=== PATIENT | female | born 1950 | race Hispanic/Latino ===

== ENCOUNTER 2017-12-06 07:34 | Outpatient (CLI) | payer MEDICARE | END 2017-12-06 07:35 | disposition home or self-care (01) | LOC: VAS 07:34 | PROVIDERS: ATTEND Internal Medicine | DX: M79.604 Pain in right leg (principal) ==

== ENCOUNTER 2018-03-30 12:39 | Inpatient (IN) | payer MEDICARE ==
--- NOTE | 2018-03-30 13:01 | Emergency Department Report ---
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 Patient says that she is also swollen to the legs and to the face. She has a history of COPD, CHF, pulmonary hypertension, chronic kidney disease. She is oxygen dependent at home at 2 L via nasal cannula. She went to see the tank worker today, Dr. Ta, who did a chest x-ray and concern for some volume overload. The patient sees Dr. Lagunas for primary care and Dr. Aceves for cardiology. No recent travel or sick contacts at home. ED Past Medical Hx - Past Medical History Previous Medical History?: Yes Hx Congestive Heart Failure: Yes Hx Renal Disease: Yes Hx COPD: Yes Additional medical history: Pulmonary Htn - Social History Smoking Status: Former Smoker Substance Use Type: None - Medications Home Medications: Home Medications Medication Instructions Recorded Confirmed Last Taken Type ALBUTEROL NEB's [Proventil] 2.5 mg IH TID PRN 03/30/18 03/30/18 03/30/18 History ALPRAZolam [Xanax TAB] 0.5 mg PO TID 03/30/18 03/30/18 Unknown History Albuterol Sulfate [Ventolin HFA] 2 puff IH Q4H PRN 03/30/18 03/30/18 Unknown History Ambrisentan [Letairis] 10 mg PO QDAY 03/30/18 03/30/18 03/30/18 History Fluticasone/Salmeterol [Advair 1 each IH BID 03/30/18 03/30/18 Unknown History 500-50 Diskus] Furosemide [Lasix TAB] 40 mg PO QDAY 03/30/18 03/30/18 03/30/18 History Omeprazole 20 mg PO QDAY 03/30/18 03/30/18 03/30/18 History Potassium Chloride [Klor-Con M20] 20 meq PO QDAY 03/30/18 03/30/18 03/30/18 History Tadalafil [Cialis] 20 mg PO BID 03/30/18 03/30/18 03/30/18 History ED Review of Systems ROS: Stated complaint: SOB/COPD Other details as noted in HPI Comment: All other systems reviewed and negative Constitutional: denies: chills, fever Eyes: denies: eye pain, vision change ENT: denies: ear pain, throat pain Respiratory: cough, shortness of breath, wheezing Cardiovascular: edema. denies: chest pain Gastrointestinal: denies: abdominal pain, vomiting Genitourinary: denies: dysuria, discharge Musculoskeletal: denies: back pain, arthralgia Skin: denies: rash, lesions Neurological: denies: headache, weakness Physical Exam - Physical Exam Vital Signs: Vital Signs 03/30/18 12:44 Temperature 97.6 F Pulse Rate 96 H Respiratory 24 Rate Blood Pressure 137/74 O2 Sat by Pulse 85 Oximetry Physical Exam: GENERAL: The patient is well-developed well-nourished. HEENT: Normocephalic. Atraumatic. Patient has moist mucous membranes. EYES: Extraocular motions are intact. Pupils are equal and reactive to light bilaterally. NECK: Supple. Trachea is midline. CHEST/LUNGS: Coarse breath sounds. Mild wheezing. There is tachypnea but no excessive muscle use. There is no respiratory distress noted. HEART/CARDIOVASCULAR: Regular. There is no tachycardia. There is no obvious murmur. ABDOMEN: Abdomen is soft, nontender. Patient has normal bowel sounds. There is no abdominal distention. SKIN: Mild lower extremity pitting edema. NEURO: The patient is awake, alert, and oriented. The patient is cooperative. The patient has no focal neurologic deficits. The patient has normal speech. MUSCULOSKELETAL: There is no tenderness or deformity. There is no limitation range of motion. There is no evidence of acute injury. ED Course Vital Signs 03/30/18 12:44 Temperature 97.6 F Pulse Rate 96 H Respiratory 24 Rate Blood Pressure 137/74 O2 Sat by Pulse 85 Oximetry - ABG Interpretation Ph: 7.432 PCO2: 30 PO2: 54 Bicarbonate: 20 Interpretation: respiratory alkalosis, other (hypoxemia) ED Medical Decision Making - Lab Data Result diagrams: 03/30/18 13:04 03/30/18 13:08 - EKG Data -: EKG Interpreted by Ga EKG shows normal: sinus rhythm (PVCs), axis, intervals, QRS complexes (right bundle branch block, left posterior fascicular block), ST-T waves Rate: normal - EKG Data When compared to previous EKG there are: previous EKG unavailable Interpretation: other (sinus rhythm, PVCs, right bundle branch block, left posterior fascicular block) - Radiology Data Radiology results: report reviewed, image reviewed interpreted by me: Chest x-ray shows some mild cardiomegaly. There is some pulmonary vascular congestion. No obvious pneumonia. VENTILATION/PERFUSION LUNG SCAN: 03/30/18 CLINICAL: Chest pain. TECHNIQUE: 15.0 mCi of xenon-133 was administered by aerosol and 5.0 mCi of technetium 99m MAA was administered intravenously. Comparison is made to a same day chest x-ray. FINDINGS: Inhalation of Xenon gas demonstrates a normal distribution of the activity throughout both lungs. The wash out phases show no retention of activity. After injection of Technetium 99m macroaggregated albumin gamma camera imaging of the lungs in multiple projections demonstrates normal pulmonary contours with a relatively homogeneous distribution of activity. No suspicious focal areas of perfusion deficiency are identified. IMPRESSION: Low probability for pulmonary embolus. Transcribed By: REF Dictated By: CARMEN PALOMO MD Electronically Authenticated By: CARMEN PALOMO MD Signed Date/Time: 03/30/18 1523 - Medical Decision Making Patient presents with a few days of progressively worsening shortness of breath and presents with hypoxia through triage. Patient appears to have a combination of COPD and CHF exacerbation. There is some mild pulmonary vascular congestion on chest x-ray patient has a BNP greater than 5000. She does have some bronchospasm and history of COPD. ABG shows some hypoxemia but no significant acid base disorder. Patient has elevated d-dimer level so a VQ scan was done but it resulted as low probability of a pulmonary embolus. Patient was given breathing treatments, Lasix, Solu-Medrol. My plan is for the patient to be admitted to the hospital for further evaluation and treatment and this will be presented to Dr. Oshea for admission. - Differential Diagnosis CHF, COPD, Asthma, PE Critical Care Time: No Critical care attestation.: If time is entered above; I have spent that time in minutes in the direct care of this critically ill patient, excluding procedure time. ED Disposition Clinical Impression: Hypoxemia, COPD exacerbation, Renal insufficiency CHF exacerbation Qualifiers: Heart failure type: unspecified Qualified Code(s): I50.9 - Heart failure, unspecified Dyspnea Qualifiers: Dyspnea type: shortness of breath Qualified Code(s): R06.02 - Shortness of breath; R06.00 - Dyspnea, unspecified; R06.01 - Orthopnea Disposition: OP ADMIT IP TO THIS HOSP Is pt being admited?: Yes Condition: Stable Instructions: Chronic Obstructive Pulmonary Disease (ED) Referrals: PRIMARY CARE, [Referring] - 3-5 Days Time of Disposition: 16:04
[2018-03-30 13:23] LABS: Hematocrit 35.9 % (30.3-42.9); Hemoglobin 11.7 gm/dl (10.1-14.3); Mean Corpuscular HGB Conc 33 % (30-34); Mean Corpuscular Volume 100 fl (79-97); Platelet Count 218 K/mm3 (140-440); Red Blood Count 3.59 M/mm3 (3.65-5.03)
[2018-03-30] MEDS ORDERED: PROVENTIL IH ONE (13:25)
[2018-03-30] MEDS ORDERED: ATROVENT IH ONE (13:25)
--- NOTE | 2018-03-30 13:28 | XRay Report ---
AP CHEST: HISTORY: Short of breath Moderate cardiomegaly and borderline pulmonary venous structures are identified. The lungs are grossly clear. No evidence for pneumonia, CHF or pneumothorax. IMPRESSION: Cardiomegaly.
[2018-03-30 13:42] LABS: Calcium 8.7 mg/dL (8.4-10.2)
[2018-03-30] MEDS ORDERED: LASIX IV ONE (13:57)
[2018-03-30 14:02] LABS: Basophils % (Manual) 0 % (0.0-1.8); Eosinophils % (Manual) 0 % (0.0-4.3); Total Cells Counted 100
[2018-03-30 14:03] LABS: Ovalocytes Few; Platelet Estimate Consistent w Auto; Poikilocytosis 1+
[2018-03-30] MEDS ORDERED: SOLU-Medrol IV ONE (15:24)
--- NOTE | 2018-03-30 15:29 | Nuclear Medicine Report ---
VENTILATION/PERFUSION LUNG SCAN: 03/30/18 CLINICAL: Chest pain. TECHNIQUE: 15.0 mCi of xenon-133 was administered by aerosol and 5.0 mCi of technetium 99m MAA was administered intravenously. Comparison is made to a same day chest x-ray. FINDINGS: Inhalation of Xenon gas demonstrates a normal distribution of the activity throughout both lungs. The wash out phases show no retention of activity. After injection of Technetium 99m macroaggregated albumin gamma camera imaging of the lungs in multiple projections demonstrates normal pulmonary contours with a relatively homogeneous distribution of activity. No suspicious focal areas of perfusion deficiency are identified. IMPRESSION: Low probability for pulmonary embolus.
[2018-03-30] MEDS ORDERED: MORPHINE IV ONE (18:33)
[2018-03-30] MEDS ORDERED: TYLENOL PO ONE (18:36)
[2018-03-30] MEDS ORDERED: TYLENOL ONE (18:40)
--- NOTE | 2018-03-30 22:42 | History and Physical Report ---
History of Present Illness Date of examination: 03/30/18 History of present illness: 68-year-old woman with a history of CHF, COPD, pulmonary hypertension comes emergency room complaints are shortness breath, dyspnea on exertion, PND and orthopnea. Over the last 2 months she has had increasingly shortness of breath, cough productive of yellow phlegm 2 months. Status post antibiotics and steroid treatment Review of systems Constitutional: no weight loss, chills, fever Ears, eyes, nose, mouth and throat: no nasal congestion, no nasal discharge, no sinus pressure, no vision change, no red eye. Neck: No neck pain or rigidity. Cardiovascular: no palpitations, chest pain Respiratory: no cough, shortness of breath Gastrointestinal: no hematochezia, abdominal pain Genitourinary : no frequency , no hematuria Musculoskeletal: no joint swelling or muscle ache Integumentary: no rash, no pruritis Neurological: no parathesias, no focal weakness Endocrine: no cold or heat intolerance, no polyuria or polydipsia Hematologic/Lymphatic: no easy bruising, no easy bleeding, no gland swelling Allergic/Immunologic: no urticaria, no angioedema. PAST MEDICAL HISTORY: CHF, COPD, pulmonary hypertension PAST SURGICAL HISTORY: Hysterectomy SOCIAL HISTORY: Denies alcohol, drugs, tobacco FAMILY HISTORY: Hypertension Medications and Allergies Allergies Allergy/AdvReac Type Severity Reaction Status Date / Time No Known Allergies Allergy Unverified 02/01/13 10:05 Home Medications Medication Instructions Recorded Confirmed Last Taken Type ALBUTEROL NEB's [Proventil] 2.5 mg IH TID PRN 03/30/18 03/30/18 03/30/18 History ALPRAZolam [Xanax TAB] 0.5 mg PO TID 03/30/18 03/30/18 Unknown History Albuterol Sulfate [Ventolin HFA] 2 puff IH Q4H PRN 03/30/18 03/30/18 Unknown History Ambrisentan [Letairis] 10 mg PO QDAY 03/30/18 03/30/18 03/30/18 History Fluticasone/Salmeterol [Advair 1 each IH BID 03/30/18 03/30/18 Unknown History 500-50 Diskus] Furosemide [Lasix TAB] 40 mg PO QDAY 03/30/18 03/30/18 03/30/18 History Omeprazole 20 mg PO QDAY 03/30/18 03/30/18 03/30/18 History Potassium Chloride [Klor-Con M20] 20 meq PO QDAY 03/30/18 03/30/18 03/30/18 History Tadalafil [Cialis] 20 mg PO BID 03/30/18 03/30/18 03/30/18 History Exam - Physical Exam Narrative exam: General Apperance: The patient lying in bed, breathing comfortable HEENT: Normocephalic, atraumatic. Pupils equally round and reactive to light, EOMI, no sclericterus or JVD or thyromegaly or nodule. , no carotid bruit, mucous membranes moist, no exudate or erythema Heart: S1-S2, regular is rhythm Lungs: Crackles bilaterally, breathing comfortable Abdomen: Positive bowel sounds, soft, nontender, nondistended, no organomegaly Extremities: no edema, no cyanosis clubbing Skin: no rash, nodule, warm and dry Neuro: cranial nerves 2-12 intact, speech is fluent, motor/sensory intact - Constitutional Vitals: Temp Pulse Resp BP Pulse Ox 97.6 F 96 H 21 122/53 91 03/30/18 12:44 03/30/18 16:30 03/30/18 16:30 03/30/18 16:30 03/30/18 16:00 Results - Labs CBC & Chem 7: 03/30/18 13:04 03/30/18 13:08 Labs: Abnormal lab results 03/30/18 03/30/18 03/30/18 Range/Units 13:04 13:08 13:08 RBC 3.59 L (3.65-5.03) M/mm3 MCV 100 H (79-97) fl MCH 33 H (28-32) pg Seg Neuts % (Manual) 92.0 H (40.0-70.0) % Lymphocytes % (Manual) 5.0 L (13.4-35.0) % Lymphocytes # (Manual) 0.4 L (1.2-5.4) K/mm3 D-Dimer 527.41 H (0-234) ng/mlDDU POC ABG pCO2 (35-45) POC ABG pO2 (80-105) Chloride 107.8 H (98-107) mmol/L Carbon Dioxide 20 L (22-30) mmol/L BUN 26 H (7-17) mg/dL Creatinine 1.4 H (0.7-1.2) mg/dL Glucose 170 H (65-100) mg/dL NT-Pro-B Natriuret Pep 5251 H (0-900) pg/mL 03/30/18 Range/Units 14:39 RBC (3.65-5.03) M/mm3 MCV (79-97) fl MCH (28-32) pg Seg Neuts % (Manual) (40.0-70.0) % Lymphocytes % (Manual) (13.4-35.0) % Lymphocytes # (Manual) (1.2-5.4) K/mm3 D-Dimer (0-234) ng/mlDDU POC ABG pCO2 30.9 L (35-45) POC ABG pO2 54 L (80-105) Chloride (98-107) mmol/L Carbon Dioxide (22-30) mmol/L BUN (7-17) mg/dL Creatinine (0.7-1.2) mg/dL Glucose (65-100) mg/dL NT-Pro-B Natriuret Pep (0-900) pg/mL - Imaging and Cardiology EKG: image reviewed Chest x-ray: report reviewed Assessment and Plan v/q low propability Assessment CHF exacerbation, acute, probably diastolic COPD exacerbation Plan Admit to medicine Start IV Lasix, consult cardiology Hold t beta tracey, RUSS inhibitor, blood pressure will not tolerate Start aspirin Monitor I's and O's, daily weights Cardiac enzymes, echo DVT prophylaxis Plan
[2018-03-30] MEDS ORDERED: TYLENOL PO PRN (23:50)
[2018-03-30] MEDS ORDERED: ZOFRAN IV PRN (23:50)
[2018-03-31] MEDS: SOLU-Medrol IV SCH ×3 (00:13→18:25)
[2018-03-31] MEDS: SODIUM CHLORIDE FLUSH SYRINGE 10 ML IV PRN ×2 (00:15→05:37)
[2018-03-31 01:23] LABS: Creatine Kinase MB 3.5 ng/mL (0.0-4.0)
[2018-03-31] MEDS: DUONEB *Not for PRN Use IH SCH ×3 (02:56→13:56)
[2018-03-31 03:56] LABS: Hematocrit 35.1 % (30.3-42.9); Hemoglobin 11.5 gm/dl (10.1-14.3); Mean Corpuscular HGB Conc 33 % (30-34); Mean Corpuscular Volume 100 fl (79-97); Platelet Count 213 K/mm3 (140-440); Red Blood Count 3.51 M/mm3 (3.65-5.03); Red Cell Distribution Width 14.6 % (13.2-15.2)
[2018-03-31 04:05] LABS: Calcium 8.7 mg/dL (8.4-10.2)
[2018-03-31] MEDS: LASIX IV SCH ×2 (05:35→18:05)
[2018-03-31 05:47] LABS: Basophils % (Manual) 0 % (0.0-1.8); Eosinophils % (Manual) 0 % (0.0-4.3); Monocytes % (Manual) 0 % (0.0-7.3); Total Cells Counted 100
[2018-03-31 05:48] LABS: Anisocytosis Few; Ovalocytes Few
[2018-03-31 05:48] LABS: Creatine Kinase MB 4.1 ng/mL (0.0-4.0)
[2018-03-31] MEDS: XANAX PO SCH ×3 (08:05→20:31)
[2018-03-31] MEDS: BROVANA NEBU IH SCH ×2 (08:54→20:25)
[2018-03-31] MEDS: PULMICORT IH SCH ×2 (08:54→20:25)
[2018-03-31] MEDS ORDERED: NON-FORMULARY (Fluticasone/Salmeterol [Advair 500-50 Diskus] 1 EACH) IH SCH (10:00)
[2018-03-31] MEDS ORDERED: NON-FORMULARY (Ambrisentan [Letairis] 10 MG) PO SCH (10:00)
--- NOTE | 2018-03-31 10:02 | Consultation ---
History of Present Illness Consult date: 03/31/18 Requesting physician: CYNTHIA MICHAEL Consult reason: congestive heart failure, shortness of breath History of present illness: This is a 68-year-old patient with severe pulmonary hypertension with cor pulmonology on 2 pulmonary hypertension medications who the last several weeks having worsening shortness of breath with exertion with cough no fever no chills no syncope no palpitations no chest pain was found with increased JVD and right-sided heart failure. Patient is on high-dose oxygenation O2 2 L Past History Past Medical History: hyperlipidemia, other (severe pulmonary hypertension idiopathic) Past Surgical History: denies: No surgical history Social history: denies: smoking (history of smoking) Family history: denies: no significant family history Medications and Allergies Allergies Allergy/AdvReac Type Severity Reaction Status Date / Time No Known Allergies Allergy Unverified 02/01/13 10:05 Home Medications Medication Instructions Recorded Confirmed Last Taken Type ALBUTEROL NEB's [Proventil] 2.5 mg IH TID PRN 03/30/18 03/30/18 03/30/18 History ALPRAZolam [Xanax TAB] 0.5 mg PO TID 03/30/18 03/30/18 Unknown History Albuterol Sulfate [Ventolin HFA] 2 puff IH Q4H PRN 03/30/18 03/30/18 Unknown History Ambrisentan [Letairis] 10 mg PO QDAY 03/30/18 03/30/18 03/30/18 History Fluticasone/Salmeterol [Advair 1 each IH BID 03/30/18 03/30/18 Unknown History 500-50 Diskus] Furosemide [Lasix TAB] 40 mg PO QDAY 03/30/18 03/30/18 03/30/18 History Omeprazole 20 mg PO QDAY 03/30/18 03/30/18 03/30/18 History Potassium Chloride [Klor-Con M20] 20 meq PO QDAY 03/30/18 03/30/18 03/30/18 History Tadalafil [Cialis] 20 mg PO BID 03/30/18 03/30/18 03/30/18 History Letairis 10 mg PO DAILY 03/31/18 03/31/18 03/30/18 History Active Meds: Active Medications Acetaminophen (Tylenol) 650 mg PO Q4H PRN PRN Reason: Pain MILD(1-3)/Fever >100.5/COOPER Albuterol/Ipratropium (Duoneb *Not For Prn Use*) 1 ampul IH Q6HRT [facility] Last Admin: 03/31/18 08:55 Dose: Not Given Documented by: Alprazolam (Xanax) 0.5 mg PO TID [facility] Last Admin: 03/31/18 08:05 Dose: 0.5 mg Documented by: Arformoterol Tartrate (Brovana Nebu) 15 mcg IH Q12HRT [facility] Last Admin: 03/31/18 08:54 Dose: 15 mcg Documented by: Aspirin (Baby Aspirin) 81 mg PO QDAY [facility] Budesonide (Pulmicort) 1 mg IH Q12HRT [facility] Last Admin: 03/31/18 08:54 Dose: 1 mg Documented by: Enoxaparin Sodium (Lovenox) 40 mg SUB-Q QDAY [facility] Furosemide (Lasix) 40 mg IV BID@0600,1800 [facility] Last Admin: 03/31/18 05:35 Dose: 40 mg Documented by: Methylprednisolone Sodium Succinate (Solu-Medrol) 60 mg IV Q8H [facility] Last Admin: 03/31/18 08:05 Dose: 60 mg Documented by: Miscellaneous Medication (Ambrisentan [Letairis]) 10 mg PO QDAY [facility] Ondansetron HCl (Zofran) 4 mg IV Q8H PRN PRN Reason: Nausea And Vomiting Pantoprazole Sodium (Protonix) 20 mg PO QDAY [facility] Pneumococcal Polyvalent Vaccine (Pneumovax 23) 0.5 ml IM .ONCE ONE Stop: 03/31/18 12:01 Sodium Chloride (Sodium Chloride Flush Syringe 10 Ml) 10 ml IV BID [facility] Sodium Chloride (Sodium Chloride Flush Syringe 10 Ml) 10 ml IV PRN PRN PRN Reason: LINE FLUSH Last Admin: 03/31/18 05:37 Dose: 10 ml Documented by: Review of Systems All systems: negative (as per the HPI) Physical Examination Vital Signs Temp Pulse Resp BP Pulse Ox 97.6 F 96 H 24 137/74 85 03/30/18 12:44 03/30/18 12:44 03/30/18 12:44 03/30/18 12:44 03/30/18 12:44 General appearance: no acute distress HEENT: Positive: EOMI Neck: Positive: JVD/HJR Cardiac: Positive: Reg Rate and Rhythm Lungs: Positive: clear to auscultation Neuro: Positive: Grossly Intact Abdomen: Positive: Soft Female genitourinary: deferred Skin: Positive: Clear Extremities: Present: normal. Absent: edema Results 03/31/18 03:46 03/31/18 03:46 Cardiac Enzymes 03/31/18 03/31/18 Range/Units 00:26 05:07 CK-MB (CK-2) 3.5 4.1 H (0.0-4.0) ng/mL CBC 03/30/18 03/31/18 Range/Units 13:04 03:46 WBC 7.0 4.5 (4.5-11.0) K/mm3 RBC 3.59 L 3.51 L (3.65-5.03) M/mm3 Hgb 11.7 11.5 (10.1-14.3) gm/dl Hct 35.9 35.1 (30.3-42.9) % Plt Count 218 213 (140-440) K/mm3 Comprehensive Metabolic Panel 03/30/18 03/31/18 Range/Units 13:08 03:46 Sodium 144 142 (137-145) mmol/L Potassium 3.6 3.7 (3.6-5.0) mmol/L Chloride 107.8 H 105.3 (98-107) mmol/L Carbon Dioxide 20 L 21 L (22-30) mmol/L BUN 26 H 25 H (7-17) mg/dL Creatinine 1.4 H 1.6 H (0.7-1.2) mg/dL Glucose 170 H 168 H (65-100) mg/dL Calcium 8.7 8.7 (8.4-10.2) mg/dL - Imaging and Cardiology Echo: report reviewed (09/2017 severe RV dilatation and moderate RV dysfunction severe pulmonary hypertension RVSP 100 mmHg normal LV function D shaped septum) Cardiac cath: report reviewed (2011 normal coronaries) EKG interpretations - Telemetry EKG Rhythm: Sinus Rhythm (normal sinus rhythm right axis deviation RVH) Assessment and Plan Acute respiratory failure Acute right sided heart failure Cor pulmonale Acute on chronic renal sufficiency Recommend cardiovascular point of view continue IV Lasix continue home pulmonary hypertension medications and monitor blood work for dehydration
[2018-03-31] MEDS: PROTONIX PO SCH (10:04)
[2018-03-31] MEDS: LOVENOX SUB-Q SCH (10:04)
[2018-03-31] MEDS: BABY ASPIRIN PO SCH (10:04)
[2018-03-31] MEDS: SODIUM CHLORIDE FLUSH SYRINGE 10 ML IV SCH ×2 (10:10→21:18)
--- NOTE | 2018-03-31 10:36 | Consultation ---
History of Present Illness Consult date: 03/31/18 Reason for consult: dyspnea, COPD, pulmonary hypertension History of present illness: Total CK [id number] female, admitted to the hospital with history of progressive shortness of breath for the past 2-3 days, the supper exertion, in the context of COPD and pulmonary hypertension. The patient complains of increased exertional dyspnea, pressure in her chest and shortness of breath. She reports occasional cough but no significant expectoration. She denies hemoptysis. Denies fever or chills or influenza-like illness contact. She is on treatment with cardiology for portal hypertension with Letaris and Trepostidil and follow-up with Dr. Ta at the office for COPD. No recent echocardiographic or RHC date on record for additional review. Uses oxygen 2 L/m at home. Denies snoring or history of sleep apnea. Reason ventilation/perfusion scan showed low probability scan. She also has a history of prior renal disease. Past History Past Medical History: hyperlipidemia, other (severe pulmonary hypertension idiopathic) Past Surgical History: denies: No surgical history Social history: denies: smoking (history of smoking) Family history: denies: no significant family history Medications and Allergies Allergies Allergy/AdvReac Type Severity Reaction Status Date / Time No Known Allergies Allergy Unverified 02/01/13 10:05 Home Medications Medication Instructions Recorded Confirmed Last Taken Type ALBUTEROL NEB's [Proventil] 2.5 mg IH TID PRN 03/30/18 03/30/18 03/30/18 History ALPRAZolam [Xanax TAB] 0.5 mg PO TID 03/30/18 03/30/18 Unknown History Albuterol Sulfate [Ventolin HFA] 2 puff IH Q4H PRN 03/30/18 03/30/18 Unknown History Ambrisentan [Letairis] 10 mg PO QDAY 03/30/18 03/30/18 03/30/18 History Fluticasone/Salmeterol [Advair 1 each IH BID 03/30/18 03/30/18 Unknown History 500-50 Diskus] Furosemide [Lasix TAB] 40 mg PO QDAY 03/30/18 03/30/18 03/30/18 History Omeprazole 20 mg PO QDAY 03/30/18 03/30/18 03/30/18 History Potassium Chloride [Klor-Con M20] 20 meq PO QDAY 03/30/18 03/30/18 03/30/18 History Tadalafil [Cialis] 20 mg PO BID 03/30/18 03/30/18 03/30/18 History Letairis 10 mg PO DAILY 03/31/18 03/31/18 03/30/18 History Active Meds: Active Medications Acetaminophen (Tylenol) 650 mg PO Q4H PRN PRN Reason: Pain MILD(1-3)/Fever >100.5/COOPER Albuterol/Ipratropium (Duoneb *Not For Prn Use*) 1 ampul IH Q6HRT [facility] Last Admin: 03/31/18 08:55 Dose: Not Given Documented by: Alprazolam (Xanax) 0.5 mg PO TID [facility] Last Admin: 03/31/18 08:05 Dose: 0.5 mg Documented by: Arformoterol Tartrate (Brovana Nebu) 15 mcg IH Q12HRT [facility] Last Admin: 03/31/18 08:54 Dose: 15 mcg Documented by: Aspirin (Baby Aspirin) 81 mg PO QDAY [facility] Last Admin: 03/31/18 10:04 Dose: 81 mg Documented by: Budesonide (Pulmicort) 1 mg IH Q12HRT [facility] Last Admin: 03/31/18 08:54 Dose: 1 mg Documented by: Enoxaparin Sodium (Lovenox) 40 mg SUB-Q QDAY [facility] Last Admin: 03/31/18 10:04 Dose: 40 mg Documented by: Furosemide (Lasix) 40 mg IV BID@0600,1800 [facility] Last Admin: 03/31/18 05:35 Dose: 40 mg Documented by: Methylprednisolone Sodium Succinate (Solu-Medrol) 60 mg IV Q8H [facility] Last Admin: 03/31/18 08:05 Dose: 60 mg Documented by: Miscellaneous Medication (Ambrisentan [Letairis]) 10 mg PO QDAY [facility] Miscellaneous Medication (Letairis) 10 mg PO DAILY [facility] Miscellaneous Medication (Tadalafil [Cialis]) 20 mg PO BID [facility] Ondansetron HCl (Zofran) 4 mg IV Q8H PRN PRN Reason: Nausea And Vomiting Pantoprazole Sodium (Protonix) 20 mg PO QDAY [facility] Last Admin: 03/31/18 10:04 Dose: 20 mg Documented by: Pneumococcal Polyvalent Vaccine (Pneumovax 23) 0.5 ml IM .ONCE ONE Stop: 03/31/18 12:01 Sodium Chloride (Sodium Chloride Flush Syringe 10 Ml) 10 ml IV BID [facility] Last Admin: 03/31/18 10:10 Dose: 10 ml Documented by: Sodium Chloride (Sodium Chloride Flush Syringe 10 Ml) 10 ml IV PRN PRN PRN Reason: LINE FLUSH Last Admin: 03/31/18 05:37 Dose: 10 ml Documented by: Physical Examination Vital signs: Vital Signs Temp Pulse Resp BP Pulse Ox 97.6 F 96 H 24 137/74 85 03/30/18 12:44 03/30/18 12:44 03/30/18 12:44 03/30/18 12:44 03/30/18 12:44 General appearance: alert, other (hoarse) Eyes: non-icteric Ascultation: Bilateral: clear, diminished breath sounds Cardiovascular: regular rate and rhythm Gastrointestinal: normoactive bowel sounds, non-distended Integumentary: normal Extremities: no cyanosis, no edema Musculoskeletal: no deformities normal mental status, non-focal exam mood appropriate, affect normal Results - Laboratory Findings CBC and BMP: 03/31/18 03:46 03/31/18 03:46 ABG POC ABG pH 7.420 (7.35-7.45) 03/31/18 03:51 POC ABG pCO2 34.7 (35-45) L 03/31/18 03:51 POC ABG pO2 62 (80-105) L 03/31/18 03:51 POC ABG HCO3 22.5 03/31/18 03:51 POC ABG Total CO2 24 03/31/18 03:51 POC ABG O2 Sat 92 03/31/18 03:51 PT/INR, D-dimer D-Dimer 527.41 ng/mlDDU (0-234) H 03/30/18 13:08 Abnormal lab findings: Abnormal Labs 03/30/18 03/30/18 03/30/18 13:04 13:08 13:08 RBC 3.59 L MCV 100 H MCH 33 H Seg Neuts % (Manual) 92.0 H Lymphocytes % (Manual) 5.0 L Lymphocytes # (Manual) 0.4 L D-Dimer 527.41 H POC ABG pCO2 POC ABG pO2 Chloride 107.8 H Carbon Dioxide 20 L BUN 26 H Creatinine 1.4 H Glucose 170 H Total Creatine Kinase CK-MB (CK-2) NT-Pro-B Natriuret Pep 5251 H 03/30/18 03/31/18 03/31/18 14:39 00:26 03:46 RBC 3.51 L MCV 100 H MCH 33 H Seg Neuts % (Manual) 90.0 H Lymphocytes % (Manual) 9.0 L Lymphocytes # (Manual) 0.4 L D-Dimer POC ABG pCO2 30.9 L POC ABG pO2 54 L Chloride Carbon Dioxide BUN Creatinine Glucose Total Creatine Kinase 139 H CK-MB (CK-2) NT-Pro-B Natriuret Pep 03/31/18 03/31/18 03/31/18 03:46 03:51 05:07 RBC MCV MCH Seg Neuts % (Manual) Lymphocytes % (Manual) Lymphocytes # (Manual) D-Dimer POC ABG pCO2 34.7 L POC ABG pO2 62 L Chloride Carbon Dioxide 21 L BUN 25 H Creatinine 1.6 H Glucose 168 H Total Creatine Kinase CK-MB (CK-2) 4.1 H NT-Pro-B Natriuret Pep - Diagnostic Findings Chest x-ray: report reviewed, image reviewed Additional studies: VQ scan-see report Assessment and Plan Dyspnea. Pattern consistent with both pulmonary hypertension COPD. Pulmonary hypertension. On outpatient treatment with Letaris and Trepostinil Chronic kidney disease Anxiety Former smoker Recommendations Albuterol 2.5 milligram nebulizations every 4-6 hours with or without ipratropium Solu-Medrol 40-60 mg IV every 6-8 hours Oxygen support via nasal cannula or mask to maintain oximetry over 92% I will continue current pulmonary hypertension medications Echocardiogram BNP Depending on findings consider if update right heart catheterization will be n eeded DVT prophylaxis Findings discussed with the patient in detail. All questions answered. Thanks
[2018-03-31] MEDS: LETAIRIS 10 MG PO SCH (11:41)
[2018-03-31] MEDS: TADALAFIL 20 MG PO SCH ×2 (11:41→21:18)
[2018-03-31] MEDS ORDERED: HYDROMET PO PRN (11:48)
[2018-03-31] MEDS ORDERED: AFLURIA QUAD 2018-2019 SYRINGE IM ONE (12:00)
[2018-03-31] MEDS ORDERED: PNEUMOVAX 23 IM ONE (12:00)
[2018-03-31] MEDS: ROBITUSSIN PO PRN (16:19)
--- NOTE | 2018-03-31 16:47 | Progress Note ---
Assessment and Plan Assessment and plan: 68-year-old woman with a history of CHF, COPD, pulmonary hypertension comes emergency room complaints are shortness breath, dyspnea on exertion, PND and orthopnea. Over the last 2 months she has had increasingly shortness of breath, cough productive of yellow phlegm 2 months. Status post antibiotics and steroid treatment Acute respiratory failure Acute right sided heart failure Severe Pulmonary HTN CKD Cor pulmonale-Severe Acute on chronic renal sufficiency EX Smoker COPD Exacerbation PLAN Continue supportive care Continue lasix cardiology input noted On outpatient treatment with Letaris and Trepostinil-continue Nebs per pulmonary Hold beta tracey, RUSS inhibitor, blood pressure will not tolerate Start aspirin Monitor I's and O's, daily weights Cardiac enzymes, echo DVT prophylaxis History Interval history: Patient is seen today for: Shortness of breath Seen and examined at bedside; 24hour events reviewed; nursing staff ; no adverse overnight events reported to me; she although does not stress any nausea vomiting or diarrhea she continues to have shortness of breath with the slightest exertion. No fever noted blood pressure controlled Hospitalist Physical - Physical exam Narrative exam: VITAL SIGNS: Reviewed. GENERAL: The patient appeared chronically ill-appearing with hoarseness of voice and anxious appearing. Vital signs as documented. HEAD: No signs of head trauma. EYES: Pupils are equal. Extraocular motions intact. EARS: Hearing grossly intact. MOUTH: Oropharynx is normal. NECK: No adenopathy, no JVD. CHEST: Chest with diminished breath sounds bilaterally. Tripod position CARDIAC: Regular rate and rhythm. S1 and S2, without murmurs, gallops, or rubs. VASCULAR: No Edema. Peripheral pulses normal and equal in all extremities. ABDOMEN: Soft, without detectable tenderness. No sign of distention. No rebound or guarding, and no masses palpated. Bowel Sounds normal. MUSCULOSKELETAL: Good range of motion of all major joints. Extremities without clubbing, cyanosis or edema. NEUROLOGIC EXAM: Alert and oriented x 3. No focal sensory or strength defi cits. Speech normal although with intermittent break due to shortness of breath. Follows commands. PSYCHIATRIC: Mood anxious SKIN: Appropriate ankle some blebs - Constitutional Vitals: Temp Pulse Resp BP Pulse Ox 98.0 F 91 H 20 92/50 89 03/31/18 16:27 03/31/18 16:26 03/31/18 16:26 03/31/18 16:26 03/31/18 16:26 General appearance: Present: no acute distress Results - Labs CBC & Chem 7: 03/31/18 03:46 03/31/18 03:46 Labs: Laboratory Last Values WBC 4.5 K/mm3 (4.5-11.0) 03/31/18 03:46 RBC 3.51 M/mm3 (3.65-5.03) L 03/31/18 03:46 Hgb 11.5 gm/dl (10.1-14.3) 03/31/18 03:46 Hct 35.1 % (30.3-42.9) 03/31/18 03:46 MCV 100 fl (79-97) H 03/31/18 03:46 MCH 33 pg (28-32) H 03/31/18 03:46 MCHC 33 % (30-34) 03/31/18 03:46 RDW 14.6 % (13.2-15.2) 03/31/18 03:46 Plt Count 213 K/mm3 (140-440) 03/31/18 03:46 Add Manual Diff Complete 03/31/18 03:46 Total Counted 100 03/31/18 03:46 Seg Neutrophils % Boiler Water Tester 03/30/18 13:04 Seg Neuts % (Manual) 90.0 % (40.0-70.0) H 03/31/18 03:46 Band Neutrophils % 1.0 % 03/31/18 03:46 Lymphocytes % (Manual) 9.0 % (13.4-35.0) L 03/31/18 03:46 Reactive Lymphs % (Man) 0 % 03/31/18 03:46 Monocytes % (Manual) 0 % (0.0-7.3) 03/31/18 03:46 Eosinophils % (Manual) 0 % (0.0-4.3) 03/31/18 03:46 Basophils % (Manual) 0 % (0.0-1.8) 03/31/18 03:46 Metamyelocytes % 0 % 03/31/18 03:46 Myelocytes % 0 % 03/31/18 03:46 Promyelocytes % 0 % 03/31/18 03:46 Blast Cells % 0 % 03/31/18 03:46 Nucleated RBC % Not Reportable 03/31/18 03:46 Seg Neutrophils # Man 4.1 K/mm3 (1.8-7.7) 03/31/18 03:46 Band Neutrophils # 0.0 K/mm3 03/31/18 03:46 Lymphocytes # (Manual) 0.4 K/mm3 (1.2-5.4) L 03/31/18 03:46 Abs React Lymphs (Man) 0.0 K/mm3 03/31/18 03:46 Monocytes # (Manual) 0.0 K/mm3 (0.0-0.8) 03/31/18 03:46 Eosinophils # (Manual) 0.0 K/mm3 (0.0-0.4) 03/31/18 03:46 Basophils # (Manual) 0.0 K/mm3 (0.0-0.1) 03/31/18 03:46 Metamyelocytes # 0.0 K/mm3 03/31/18 03:46 Myelocytes # 0.0 K/mm3 03/31/18 03:46 Promyelocytes # 0.0 K/mm3 03/31/18 03:46 Blast Cells # 0.0 K/mm3 03/31/18 03:46 WBC Morphology Not Reportable 03/31/18 03:46 Hypersegmented Neuts Not Reportable 03/31/18 03:46 Hyposegmented Neuts Not Reportable 03/31/18 03:46 Hypogranular Neuts Not Reportable 03/31/18 03:46 Smudge Cells Not Reportable 03/31/18 03:46 Toxic Granulation Not Reportable 03/31/18 03:46 Toxic Vacuolation Not Reportable 03/31/18 03:46 Dohle Bodies Not Reportable 03/31/18 03:46 Pelger-Huet Anomaly Not Reportable 03/31/18 03:46 Rea Rods Not Reportable 03/31/18 03:46 Platelet Estimate Appears normal 03/31/18 03:46 Clumped Platelets Not Reportable 03/31/18 03:46 Plt Clumps, EDTA Not Reportable 03/31/18 03:46 Large Platelets Not Reportable 03/31/18 03:46 Giant Platelets Not Reportable 03/31/18 03:46 Platelet Satelliting Not Reportable 03/31/18 03:46 Plt Morphology Comment Not Reportable 03/31/18 03:46 RBC Morphology Not Reportable 03/31/18 03:46 Dimorphic RBCs Not Reportable 03/31/18 03:46 Polychromasia Not Reportable 03/31/18 03:46 Hypochromasia Not Reportable 03/31/18 03:46 Poikilocytosis Not Reportable 03/31/18 03:46 Anisocytosis Few 03/31/18 03:46 Microcytosis Not Reportable 03/31/18 03:46 Macrocytosis Not Reportable 03/31/18 03:46 Spherocytes Not Reportable 03/31/18 03:46 Pappenheimer Bodies Not Reportable 03/31/18 03:46 Sickle Cells Not Reportable 03/31/18 03:46 Target Cells Not Reportable 03/31/18 03:46 Tear Drop Cells Not Reportable 03/31/18 03:46 Ovalocytes Few 03/31/18 03:46 Helmet Cells Not Reportable 03/31/18 03:46 [place] Bodies Not Reportable 03/31/18 03:46 [place] Rings Not Reportable 03/31/18 03:46 [place] Cells Not Reportable 03/31/18 03:46 Bite Cells Not Reportable 03/31/18 03:46 Crenated Cell Not Reportable 03/31/18 03:46 Elliptocytes Not Reportable 03/31/18 03:46 Acanthocytes (Spur) Not Reportable 03/31/18 03:46 Rouleaux Not Reportable 03/31/18 03:46 Hemoglobin C Crystals Not Reportable 03/31/18 03:46 Schistocytes Not Reportable 03/31/18 03:46 Malaria parasites Not Reportable 03/31/18 03:46 Abiodun Bodies Not Reportable 03/31/18 03:46 Hem Pathologist Commnt No 03/31/18 03:46 D-Dimer 527.41 ng/mlDDU (0-234) H 03/30/18 13:08 POC ABG pH 7.420 (7.35-7.45) 03/31/18 03:51 POC ABG pCO2 34.7 (35-45) L 03/31/18 03:51 POC ABG pO2 62 (80-105) L 03/31/18 03:51 POC ABG HCO3 22.5 03/31/18 03:51 POC ABG Total CO2 24 03/31/18 03:51 POC ABG O2 Sat 92 03/31/18 03:51 POC ABG Base Excess -2 03/31/18 03:51 FiO2 50 % 03/31/18 03:51 Sodium 142 mmol/L (137-145) 03/31/18 03:46 Potassium 3.7 mmol/L (3.6-5.0) 03/31/18 03:46 Chloride 105.3 mmol/L (98-107) 03/31/18 03:46 Carbon Dioxide 21 mmol/L (22-30) L 03/31/18 03:46 Anion Gap 19 mmol/L 03/31/18 03:46 BUN 25 mg/dL (7-17) H 03/31/18 03:46 Creatinine 1.6 mg/dL (0.7-1.2) H 03/31/18 03:46 Estimated GFR 32 ml/min 03/31/18 03:46 BUN/Creatinine Ratio 16 % 03/31/18 03:46 Glucose 168 mg/dL (65-100) H 03/31/18 03:46 Calcium 8.7 mg/dL (8.4-10.2) 03/31/18 03:46 Total Creatine Kinase 132 units/L (30-135) 03/31/18 05:07 CK-MB (CK-2) 4.1 ng/mL (0.0-4.0) H 03/31/18 05:07 CK-MB (CK-2) Rel Index 3.1 (0-4) 03/31/18 05:07 Troponin T < 0.010 ng/mL (0.00-0.029) 03/31/18 05:07 NT-Pro-B Natriuret Pep 5251 pg/mL (0-900) H 03/30/18 13:08 - Imaging and Cardiology Chest x-ray: image reviewed (no acute pathology)
[2018-04-01] MEDS: SOLU-Medrol IV SCH ×3 (00:57→18:14)
[2018-04-01] MEDS: SODIUM CHLORIDE FLUSH SYRINGE 10 ML IV PRN ×2 (00:58→05:59)
[2018-04-01] MEDS: DUONEB *Not for PRN Use IH SCH ×5 (01:35→20:58)
[2018-04-01] MEDS: LASIX IV SCH ×2 (05:59→18:15)
--- NOTE | 2018-04-01 09:12 | Progress Note ---
Assessment and Plan Assessment and plan: 68-year-old woman with a history of CHF, COPD, pulmonary hypertension comes emergency room complaints are shortness breath, dyspnea on exertion, PND and orthopnea. Over the last 2 months she has had increasingly shortness of breath, cough productive of yellow phlegm 2 months. Status post antibiotics and steroid treatment Acute respiratory failure with hypoxia Acute right sided heart failure Severe Pulmonary HTN CKD Cor pulmonale-Severe Acute on chronic renal sufficiency EX Smoker COPD Exacerbation PLAN Continue supportive care Pateint still on venturi mask, feels she gets "nose block" with nasal cannula despite humidification Continue lasix cardiology input noted On outpatient treatment with Letaris and Trepostinil-continue Nebs per pulmonary Hold beta tracey, RUSS inhibitor, blood pressure will not tolerate Continue aspirin Monitor I's and O's, daily weights Cardiac enzymes, echo DVT prophylaxis History Interval history: Patient is seen today for: Shortness of breath Seen and examined at bedside; 24hour events reviewed; nursing staff ; no adverse overnight events reported to me; she although does not have any nausea vomiting or diarrhea she continues to have shortness of breath with the slightest exertion. Feel some mild improvement but still requring venturi mask. No fever noted blood pressure controlled Hospitalist Physical - Physical exam Narrative exam: VITAL SIGNS: Reviewed. GENERAL: The patient appeared chronically ill-appearing with hoarseness of voice and anxious appearing. Vital signs as documented. HEAD: No signs of head trauma. EYES: Pupils are equal. Extraocular motions intact. EARS: Hearing grossly intact. MOUTH: Oropharynx is normal. NECK: No adenopathy, no JVD. CHEST: Chest with diminished breath sounds bilaterally. Tripod position CARDIAC: Regular rate and rhythm. S1 and S2, without murmurs, gallops, or rubs. VASCULAR: No Edema. Peripheral pulses normal and equal in all extremities. ABDOMEN: Soft, without detectable tenderness. No sign of distention. No rebound or guarding, and no masses palpated. Bowel Sounds normal. MUSCULOSKELETAL: Good range of motion of all major joints. Extremities without clubbing, cyanosis or edema. NEUROLOGIC EXAM: Alert and oriented x 3. No focal sensory or strength deficits. Speech normal although with intermittent break due to shortness of breath. Follows commands. PSYCHIATRIC: Mood anxious SKIN: Appropriate ankle some blebs - Constitutional Vitals: Temp Pulse Resp BP Pulse Ox 97.6 F 62 20 115/69 90 04/01/18 08:06 04/01/18 08:05 04/01/18 08:05 04/01/18 08:05 04/01/18 08:05 General appearance: Present: no acute distress Results - Labs CBC & Chem 7: 03/31/18 03:46 03/31/18 03:46 Labs: Laboratory Last Values WBC 4.5 K/mm3 (4.5-11.0) 03/31/18 03:46 RBC 3.51 M/mm3 (3.65-5.03) L 03/31/18 03:46 Hgb 11.5 gm/dl (10.1-14.3) 03/31/18 03:46 Hct 35.1 % (30.3-42.9) 03/31/18 03:46 MCV 100 fl (79-97) H 03/31/18 03:46 MCH 33 pg (28-32) H 03/31/18 03:46 MCHC 33 % (30-34) 03/31/18 03:46 RDW 14.6 % (13.2-15.2) 03/31/18 03:46 Plt Count 213 K/mm3 (140-440) 03/31/18 03:46 Add Manual Diff Complete 03/31/18 03:46 Total Counted 100 03/31/18 03:46 Seg Neutrophils % Animal Shelter Clerk 03/30/18 13:04 Seg Neuts % (Manual) 90.0 % (40.0-70.0) H 03/31/18 03:46 Band Neutrophils % 1.0 % 03/31/18 03:46 Lymphocytes % (Manual) 9.0 % (13.4-35.0) L 03/31/18 03:46 Reactive Lymphs % (Man) 0 % 03/31/18 03:46 Monocytes % (Manual) 0 % (0.0-7.3) 03/31/18 03:46 Eosinophils % (Manual) 0 % (0.0-4.3) 03/31/18 03:46 Basophils % (Manual) 0 % (0.0-1.8) 03/31/18 03:46 Metamyelocytes % 0 % 03/31/18 03:46 Myelocytes % 0 % 03/31/18 03:46 Promyelocytes % 0 % 03/31/18 03:46 Blast Cells % 0 % 03/31/18 03:46 Nucleated RBC % Not Reportable 03/31/18 03:46 Seg Neutrophils # Man 4.1 K/mm3 (1.8-7.7) 03/31/18 03:46 Band Neutrophils # 0.0 K/mm3 03/31/18 03:46 Lymphocytes # (Manual) 0.4 K/mm3 (1.2-5.4) L 03/31/18 03:46 Abs React Lymphs (Man) 0.0 K/mm3 03/31/18 03:46 Monocytes # (Manual) 0.0 K/mm3 (0.0-0.8) 03/31/18 03:46 Eosinophils # (Manual) 0.0 K/mm3 (0.0-0.4) 03/31/18 03:46 Basophils # (Manual) 0.0 K/mm3 (0.0-0.1) 03/31/18 03:46 Metamyelocytes # 0.0 K/mm3 03/31/18 03:46 Myelocytes # 0.0 K/mm3 03/31/18 03:46 Promyelocytes # 0.0 K/mm3 03/31/18 03:46 Blast Cells # 0.0 K/mm3 03/31/18 03:46 WBC Morphology Not Reportable 03/31/18 03:46 Hypersegmented Neuts Not Reportable 03/31/18 03:46 Hyposegmented Neuts Not Reportable 03/31/18 03:46 Hypogranular Neuts Not Reportable 03/31/18 03:46 Smudge Cells Not Reportable 03/31/18 03:46 Toxic Granulation Not Reportable 03/31/18 03:46 Toxic Vacuolation Not Reportable 03/31/18 03:46 Dohle Bodies Not Reportable 03/31/18 03:46 Pelger-Huet Anomaly Not Reportable 03/31/18 03:46 Rea Rods Not Reportable 03/31/18 03:46 Platelet Estimate Appears normal 03/31/18 03:46 Clumped Platelets Not Reportable 03/31/18 03:46 Plt Clumps, EDTA Not Reportable 03/31/18 03:46 Large Platelets Not Reportable 03/31/18 03:46 Giant Platelets Not Reportable 03/31/18 03:46 Platelet Satelliting Not Reportable 03/31/18 03:46 Plt Morphology Comment Not Reportable 03/31/18 03:46 RBC Morphology Not Reportable 03/31/18 03:46 Dimorphic RBCs Not Reportable 03/31/18 03:46 Polychromasia Not Reportable 03/31/18 03:46 Hypochromasia Not Reportable 03/31/18 03:46 Poikilocytosis Not Reportable 03/31/18 03:46 Anisocytosis Few 03/31/18 03:46 Microcytosis Not Reportable 03/31/18 03:46 Macrocytosis Not Reportable 03/31/18 03:46 Spherocytes Not Reportable 03/31/18 03:46 Pappenheimer Bodies Not Reportable 03/31/18 03:46 Sickle Cells Not Reportable 03/31/18 03:46 Target Cells Not Reportable 03/31/18 03:46 Tear Drop Cells Not Reportable 03/31/18 03:46 Ovalocytes Few 03/31/18 03:46 Helmet Cells Not Reportable 03/31/18 03:46 [place] Bodies Not Reportable 03/31/18 03:46 [place] Rings Not Reportable 03/31/18 03:46 [place] Cells Not Reportable 03/31/18 03:46 Bite Cells Not Reportable 03/31/18 03:46 Crenated Cell Not Reportable 03/31/18 03:46 Elliptocytes Not Reportable 03/31/18 03:46 Acanthocytes (Spur) Not Reportable 03/31/18 03:46 Rouleaux Not Reportable 03/31/18 03:46 Hemoglobin C Crystals Not Reportable 03/31/18 03:46 Schistocytes Not Reportable 03/31/18 03:46 Malaria parasites Not Reportable 03/31/18 03:46 Abiodun Bodies Not Reportable 03/31/18 03:46 Hem Pathologist Commnt No 03/31/18 03:46 D-Dimer 527.41 ng/mlDDU (0-234) H 03/30/18 13:08 POC ABG pH 7.420 (7.35-7.45) 03/31/18 03:51 POC ABG pCO2 34.7 (35-45) L 03/31/18 03:51 POC ABG pO2 62 (80-105) L 03/31/18 03:51 POC ABG HCO3 22.5 03/31/18 03:51 POC ABG Total CO2 24 03/31/18 03:51 POC ABG O2 Sat 92 03/31/18 03:51 POC ABG Base Excess -2 03/31/18 03:51 FiO2 50 % 03/31/18 03:51 Sodium 142 mmol/L (137-145) 03/31/18 03:46 Potassium 3.7 mmol/L (3.6-5.0) 03/31/18 03:46 Chloride 105.3 mmol/L (98-107) 03/31/18 03:46 Carbon Dioxide 21 mmol/L (22-30) L 03/31/18 03:46 Anion Gap 19 mmol/L 03/31/18 03:46 BUN 25 mg/dL (7-17) H 03/31/18 03:46 Creatinine 1.6 mg/dL (0.7-1.2) H 03/31/18 03:46 Estimated GFR 32 ml/min 03/31/18 03:46 BUN/Creatinine Ratio 16 % 03/31/18 03:46 Glucose 168 mg/dL (65-100) H 03/31/18 03:46 Calcium 8.7 mg/dL (8.4-10.2) 03/31/18 03:46 Total Creatine Kinase 132 units/L (30-135) 03/31/18 05:07 CK-MB (CK-2) 4.1 ng/mL (0.0-4.0) H 03/31/18 05:07 CK-MB (CK-2) Rel Index 3.1 (0-4) 03/31/18 05:07 Troponin T < 0.010 ng/mL (0.00-0.029) 03/31/18 05:07 NT-Pro-B Natriuret Pep 5251 pg/mL (0-900) H 03/30/18 13:08
[2018-04-01] MEDS: PULMICORT IH SCH ×2 (10:18→20:57)
[2018-04-01] MEDS: BROVANA NEBU IH SCH ×2 (10:18→20:58)
[2018-04-01] MEDS: XANAX PO SCH ×3 (11:27→20:00)
[2018-04-01] MEDS: PROTONIX PO SCH (11:29)
[2018-04-01] MEDS: LOVENOX SUB-Q SCH (11:29)
[2018-04-01] MEDS: BABY ASPIRIN PO SCH (11:29)
[2018-04-01] MEDS: LETAIRIS 10 MG PO SCH (11:30)
[2018-04-01] MEDS: TADALAFIL 20 MG PO SCH ×2 (11:30→22:34)
[2018-04-01] MEDS: ROBITUSSIN PO PRN ×2 (11:32→22:35)
[2018-04-01] MEDS: SODIUM CHLORIDE FLUSH SYRINGE 10 ML IV SCH ×2 (11:32→22:35)
--- NOTE | 2018-04-01 11:45 | Progress Note ---
Assessment and Plan - Patient Problems (1) Pulmonary hypertension Current Visit: Yes Status: Acute (2) CHF exacerbation Current Visit: Yes Status: Acute Qualifiers: Heart failure type: unspecified Qualified Code(s): I50.9 - Heart failure, unspecified (3) COPD exacerbation Current Visit: Yes Status: Acute (4) Dyspnea Current Visit: Yes Status: Acute Qualifiers: Dyspnea type: shortness of breath Qualified Code(s): R06.02 - Shortness of breath; R06.00 - Dyspnea, unspecified; R06.01 - Orthopnea (5) Hypoxemia Current Visit: Yes Status: Acute (6) Renal insufficiency Current Visit: Yes Status: Acute (7) Acute bronchitis Current Visit: Yes Status: Acute Subjective Interval history: feels better, still sob Objective Vital Signs - 12hr 04/01/18 04/01/18 04/01/18 01:35 01:47 04:11 Temperature 97.6 F Pulse Rate 83 Pulse Rate [ 89 92 H Anterior Bilateral Throughout] Respiratory 22 Rate Respiratory 18 18 Rate [Anterior Bilateral Throughout] Blood Pressure 100/58 O2 Sat by Pulse 90 Oximetry 04/01/18 04/01/18 04/01/18 05:00 08:05 08:06 Temperature 97.6 F Pulse Rate 86 62 Pulse Rate [ Anterior Bilateral Throughout] Respiratory 20 Rate Respiratory Rate [Anterior Bilateral Throughout] Blood Pressure 115/69 O2 Sat by Pulse 90 Oximetry 04/01/18 04/01/18 04/01/18 10:20 10:24 10:31 Temperature Pulse Rate Pulse Rate [ 80 80 Anterior Bilateral Throughout] Respiratory Rate Respiratory 16 18 Rate [Anterior Bilateral Throughout] Blood Pressure O2 Sat by Pulse 94 Oximetry 04/01/18 04/01/18 11:22 11:23 Temperature 97.4 F L Pulse Rate 65 Pulse Rate [ Anterior Bilateral Throughout] Respiratory 20 Rate Respiratory Rate [Anterior Bilateral Throughout] Blood Pressure 111/52 O2 Sat by Pulse 86 Oximetry Constitutional: alert, other (hoarse) Eyes: non-icteric Ascultation: Bilateral: diminished breath sounds Cardiovascular: regular rate and rhythm Gastrointestinal: normoactive bowel sounds, non-distended Integumentary: normal Extremities: no cyanosis, no edema Neurologic: normal mental status, non-focal exam Psychiatric: mood appropriate, affect normal CBC and BMP: 03/31/18 03:46 03/31/18 03:46 ABG, PT/INR, D-dimer: ABG POC ABG pH 7.420 (7.35-7.45) 03/31/18 03:51 POC ABG pCO2 34.7 (35-45) L 03/31/18 03:51 POC ABG pO2 62 (80-105) L 03/31/18 03:51 POC ABG HCO3 22.5 03/31/18 03:51 POC ABG Total CO2 24 03/31/18 03:51 POC ABG O2 Sat 92 03/31/18 03:51 PT/INR, D-dimer D-Dimer 527.41 ng/mlDDU (0-234) H 03/30/18 13:08 Abnormal lab findings: Abnormal Labs 03/30/18 03/30/18 03/30/18 13:04 13:08 13:08 RBC 3.59 L MCV 100 H MCH 33 H Seg Neuts % (Manual) 92.0 H Lymphocytes % (Manual) 5.0 L Lymphocytes # (Manual) 0.4 L D-Dimer 527.41 H POC ABG pCO2 POC ABG pO2 Chloride 107.8 H Carbon Dioxide 20 L BUN 26 H Creatinine 1.4 H Glucose 170 H Total Creatine Kinase CK-MB (CK-2) NT-Pro-B Natriuret Pep 5251 H 03/30/18 03/31/18 03/31/18 14:39 00:26 03:46 RBC 3.51 L MCV 100 H MCH 33 H Seg Neuts % (Manual) 90.0 H Lymphocytes % (Manual) 9.0 L Lymphocytes # (Manual) 0.4 L D-Dimer POC ABG pCO2 30.9 L POC ABG pO2 54 L Chloride Carbon Dioxide BUN Creatinine Glucose Total Creatine Kinase 139 H CK-MB (CK-2) NT-Pro-B Natriuret Pep 03/31/18 03/31/18 03/31/18 03:46 03:51 05:07 RBC MCV MCH Seg Neuts % (Manual) Lymphocytes % (Manual) Lymphocytes # (Manual) D-Dimer POC ABG pCO2 34.7 L POC ABG pO2 62 L Chloride Carbon Dioxide 21 L BUN 25 H Creatinine 1.6 H Glucose 168 H Total Creatine Kinase CK-MB (CK-2) 4.1 H NT-Pro-B Natriuret Pep
--- NOTE | 2018-04-01 14:52 | Progress Note ---
Assessment and Plan This is a 68-year-old patient with severe pulmonary hypertension with cor pulmonology on 2 pulmonary hypertension medications who the last several weeks having worsening shortness of breath with exertion with cough no fever no chills no syncope no palpitations no chest pain was found with increased JVD and right-sided heart failure. Patient is on high-dose oxygenation O2 2 L 04/01/2018>continue present rx.Still SOB. Subjective Date of service: 04/01/18 Interval history: No change in patient's symptoms. Objective Vital Signs Temp Pulse Pulse Resp Resp BP Pulse Ox 04/01/18 11:23 97.4 F L 04/01/18 11:22 65 20 111/52 86 04/01/18 10:31 80 18 04/01/18 10:24 94 04/01/18 10:20 80 16 04/01/18 08:06 97.6 F 04/01/18 08:05 62 20 115/69 90 04/01/18 05:00 86 04/01/18 04:11 97.6 F 83 22 100/58 90 04/01/18 01:47 92 H 18 04/01/18 01:35 89 18 03/31/18 23:37 98.4 F 87 20 110/63 88 03/31/18 20:54 86 03/31/18 20:40 92 H 20 03/31/18 20:31 97.8 F 90 22 115/61 87 03/31/18 20:25 88 20 03/31/18 16:27 98.0 F 03/31/18 16:26 91 H 20 92/50 89 03/31/18 15:26 110 H - Physical Examination HEENT: Positive: EOMI Neck: Positive: neck supple, JVD/HJR Cardiac: Positive: Regular Rhythm, S3, S4 Lungs: Positive: Decreased Breath Sounds Neuro: Positive: Grossly Intact Abdomen: Positive: Soft Skin: Positive: Clear Extremities: Present: normal. Absent: edema - Imaging and Cardiology EKG: image reviewed Echo: report reviewed (09/2017 severe RV dilatation and moderate RV dysfunction severe pulmonary hypertension RVSP 100 mmHg normal LV function D shaped septum) Cardiac cath: report reviewed (2011 normal coronaries)
[2018-04-02] MEDS: SOLU-Medrol IV SCH ×2 (00:40→10:58)
[2018-04-02 05:42] LABS: Calcium 8.7 mg/dL (8.4-10.2)
[2018-04-02] MEDS: LASIX IV SCH ×2 (06:10→18:34)
[2018-04-02] MEDS: XANAX PO SCH ×3 (08:53→20:50)
[2018-04-02] MEDS: BROVANA NEBU IH SCH ×2 (10:10→21:30)
[2018-04-02] MEDS: PULMICORT IH SCH ×2 (10:10→21:30)
[2018-04-02] MEDS: DUONEB *Not for PRN Use IH SCH ×4 (10:14→21:30)
[2018-04-02] MEDS: LOVENOX SUB-Q SCH (10:48)
[2018-04-02] MEDS: BABY ASPIRIN PO SCH (10:51)
[2018-04-02] MEDS: PROTONIX PO SCH (10:51)
[2018-04-02] MEDS: SODIUM CHLORIDE FLUSH SYRINGE 10 ML IV SCH ×2 (10:51→22:16)
[2018-04-02] MEDS: TADALAFIL 20 MG PO SCH ×2 (11:07→22:16)
[2018-04-02] MEDS: LETAIRIS 10 MG PO SCH (11:07)
--- NOTE | 2018-04-02 12:42 | Progress Note ---
Assessment and Plan - Patient Problems (1) Pulmonary hypertension Current Visit: Yes Status: Acute (2) CHF exacerbation Current Visit: Yes Status: Acute Qualifiers: Heart failure type: unspecified Qualified Code(s): I50.9 - Heart failure, unspecified (3) COPD exacerbation Current Visit: Yes Status: Acute (4) Dyspnea Current Visit: Yes Status: Acute Qualifiers: Dyspnea type: shortness of breath Qualified Code(s): R06.02 - Shortness of breath; R06.00 - Dyspnea, unspecified; R06.01 - Orthopnea (5) Hypoxemia Current Visit: Yes Status: Acute (6) Renal insufficiency Current Visit: Yes Status: Acute (7) Acute bronchitis Current Visit: Yes Status: Acute Subjective Interval history: feels better Objective Vital Signs - 12hr 04/02/18 04/02/18 04/02/18 04:50 05:00 08:00 Temperature 97.5 F L Pulse Rate 65 116 H 85 Pulse Rate [ Anterior Bilateral Throughout] Respiratory 17 20 Rate Respiratory Rate [Anterior Bilateral Throughout] Blood Pressure 108/65 117/67 O2 Sat by Pulse 88 90 Oximetry 04/02/18 04/02/18 04/02/18 08:01 08:32 10:10 Temperature 97.5 F L Pulse Rate Pulse Rate [ 84 Anterior Bilateral Throughout] Respiratory Rate Respiratory 17 Rate [Anterior Bilateral Throughout] Blood Pressure O2 Sat by Pulse 94 Oximetry 04/02/18 10:21 Temperature Pulse Rate Pulse Rate [ 92 H Anterior Bilateral Throughout] Respiratory Rate Respiratory 17 Rate [Anterior Bilateral Throughout] Blood Pressure O2 Sat by Pulse Oximetry Constitutional: alert, other (hoarse) Eyes: non-icteric ENT: oropharynx moist Neck: supple Ascultation: Bilateral: clear, diminished breath sounds Cardiovascular: regular rate and rhythm Gastrointestinal: normoactive bowel sounds, non-distended Integumentary: normal Extremities: no cyanosis, no edema Neurologic: normal mental status, non-focal exam Psychiatric: mood appropriate, affect normal CBC and BMP: 03/31/18 03:46 04/02/18 04:50 ABG, PT/INR, D-dimer: ABG POC ABG pH 7.420 (7.35-7.45) 03/31/18 03:51 POC ABG pCO2 34.7 (35-45) L 03/31/18 03:51 POC ABG pO2 62 (80-105) L 03/31/18 03:51 POC ABG HCO3 22.5 03/31/18 03:51 POC ABG Total CO2 24 03/31/18 03:51 POC ABG O2 Sat 92 03/31/18 03:51 PT/INR, D-dimer D-Dimer 527.41 ng/mlDDU (0-234) H 03/30/18 13:08 Abnormal lab findings: Abnormal Labs 03/30/18 03/30/18 03/30/18 13:04 13:08 13:08 RBC 3.59 L MCV 100 H MCH 33 H Seg Neuts % (Manual) 92.0 H Lymphocytes % (Manual) 5.0 L Lymphocytes # (Manual) 0.4 L D-Dimer 527.41 H POC ABG pCO2 POC ABG pO2 Potassium Chloride 107.8 H Carbon Dioxide 20 L BUN 26 H Creatinine 1.4 H Glucose 170 H Total Creatine Kinase CK-MB (CK-2) NT-Pro-B Natriuret Pep 5251 H 03/30/18 03/31/18 03/31/18 14:39 00:26 03:46 RBC 3.51 L MCV 100 H MCH 33 H Seg Neuts % (Manual) 90.0 H Lymphocytes % (Manual) 9.0 L Lymphocytes # (Manual) 0.4 L D-Dimer POC ABG pCO2 30.9 L POC ABG pO2 54 L Potassium Chloride Carbon Dioxide BUN Creatinine Glucose Total Creatine Kinase 139 H CK-MB (CK-2) NT-Pro-B Natriuret Pep 03/31/18 03/31/18 03/31/18 03:46 03:51 05:07 RBC MCV MCH Seg Neuts % (Manual) Lymphocytes % (Manual) Lymphocytes # (Manual) D-Dimer POC ABG pCO2 34.7 L POC ABG pO2 62 L Potassium Chloride Carbon Dioxide 21 L BUN 25 H Creatinine 1.6 H Glucose 168 H Total Creatine Kinase CK-MB (CK-2) 4.1 H NT-Pro-B Natriuret Pep 04/02/18 04:50 RBC MCV MCH Seg Neuts % (Manual) Lymphocytes % (Manual) Lymphocytes # (Manual) D-Dimer POC ABG pCO2 POC ABG pO2 Potassium 3.3 L Chloride Carbon Dioxide BUN 45 H Creatinine 1.4 H Glucose 138 H Total Creatine Kinase CK-MB (CK-2) NT-Pro-B Natriuret Pep
--- NOTE | 2018-04-02 14:15 | Progress Note ---
Assessment and Plan This is a 68-year-old patient with severe pulmonary hypertension with cor pulmonology on 2 pulmonary hypertension medications who the last several weeks having worsening shortness of breath with exertion with cough no fever no chills no syncope no palpitations no chest pain was found with increased JVD and right-sided heart failure. Patient is on high-dose oxygenation O2 2 L 04/01/2018>continue present rx.Still SOB. 04/02/2108>no significant change.continue present rx. Subjective Date of service: 04/02/18 Interval history: No change in patient's symptoms. Objective Vital Signs Temp Pulse Pulse Resp Resp BP BP 04/02/18 12:43 97.6 F 04/02/18 12:42 76 20 97/45 04/02/18 10:21 92 H 17 04/02/18 10:10 84 17 04/02/18 08:32 04/02/18 08:01 97.5 F L 04/02/18 08:00 85 20 117/67 04/02/18 05:00 116 H 04/02/18 04:50 97.5 F L 65 17 108/65 04/02/18 00:18 98.2 F 77 17 105/40 04/01/18 23:59 98.2 F 17 105/40 04/01/18 23:07 04/01/18 21:11 20 04/01/18 21:01 95 H 20 04/01/18 21:00 89 04/01/18 20:15 97.9 F 83 17 94/55 04/01/18 18:28 97.6 F 04/01/18 18:26 67 20 109/39 04/01/18 15:52 90 20 04/01/18 15:38 94 H 20 Pulse Ox 04/02/18 12:43 04/02/18 12:42 91 04/02/18 10:21 04/02/18 10:10 04/02/18 08:32 94 04/02/18 08:01 04/02/18 08:00 90 04/02/18 05:00 04/02/18 04:50 88 04/02/18 00:18 90 04/01/18 23:59 04/01/18 23:07 88 04/01/18 21:11 04/01/18 21:01 04/01/18 21:00 86 04/01/18 20:15 90 04/01/18 18:28 04/01/18 18:26 89 04/01/18 15:52 04/01/18 15:38 - Physical Examination HEENT: Positive: EOMI Neck: Positive: neck supple, JVD/HJR Neuro: Positive: Grossly Intact Abdomen: Positive: Soft Skin: Positive: Clear Extremities: Present: normal. Absent: edema - Labs and Meds Comprehensive Metabolic Panel 04/02/18 Range/Units 04:50 Sodium 140 (137-145) mmol/L Potassium 3.3 L (3.6-5.0) mmol/L Chloride 99.5 (98-107) mmol/L Carbon Dioxide 27 (22-30) mmol/L BUN 45 H (7-17) mg/dL Creatinine 1.4 H (0.7-1.2) mg/dL Glucose 138 H (65-100) mg/dL Calcium 8.7 (8.4-10.2) mg/dL - Imaging and Cardiology EKG: image reviewed Echo: report reviewed (09/2017 severe RV dilatation and moderate RV dysfunction severe pulmonary hypertension RVSP 100 mmHg normal LV function D shaped septum) Cardiac cath: report reviewed (2011 normal coronaries) - EKG Supraventricular dysrhythmia: multifocal atrial tachyca
--- NOTE | 2018-04-02 14:39 | Progress Note ---
Assessment and Plan Assessment and plan: 68-year-old woman with a history of CHF, COPD, pulmonary hypertension comes emergency room complaints are shortness breath, dyspnea on exertion, PND and orthopnea. Over the last 2 months she has had increasingly shortness of breath, cough productive of yellow phlegm 2 months. Status post antibiotics and steroid treatment Acute respiratory failure with hypoxia Acute right sided heart failure Severe Pulmonary HTN CKD Cor pulmonale-Severe Acute on chronic renal sufficiency EX Smoker COPD Exacerbation PLAN Continue supportive care Feels she gets "nose block" with nasal cannula despite humidification Continue lasix cardiology input noted Taper steroids On outpatient treatment with [facility] and Trepostinil-continue Nebs per pulmonary Hold beta tracey, RUSS inhibitor, blood pressure will not tolerate Continue aspirin Monitor I's and O's, daily weights Cardiac enzymes, echo DVT prophylaxis Anticipate discharge in a day or two. History Interval history: Patient is seen today for: Shortness of breath Seen and examined at bedside; 24hour events reviewed; nursing staff ; no adverse overnight events reported to me; she although does not have any nausea vomiting or diarrhea she continues to have shortness of breath with the slightest exertion. Feel some mild improvement but still requring venturi mask. No fever noted blood pressure controlled Hospitalist Physical - Physical exam Narrative exam: VITAL SIGNS: Reviewed. GENERAL: The patient appeared chronically ill-appearing with hoarseness of voice and anxious appearing. Vital signs as documented. HEAD: No signs of head trauma. EYES: Pupils are equal. Extraocular motions intact. EARS: Hearing grossly intact. MOUTH: Oropharynx is normal. NECK: No adenopathy, no JVD. CHEST: Chest with diminished breath sounds bilaterally. Tripod position CARDIAC: Regular rate and rhythm. S1 and S2, without murmurs, gallops, or rubs. VASCULAR: No Edema. Peripheral pulses normal and equal in all extremities. ABDOMEN: Soft, without detectable tenderness. No sign of distention. No rebound or guarding, and no masses palpated. Bowel Sounds normal. MUSCULOSKELETAL: Good range of motion of all major joints. Extremities without clubbing, cyanosis or edema. NEUROLOGIC EXAM: Alert and oriented x 3. No focal sensory or strength defici ts. Speech normal although with intermittent break due to shortness of breath. Follows commands. PSYCHIATRIC: Mood anxious SKIN: Appropriate ankle some blebs - Constitutional Vitals: Temp Pulse Resp BP Pulse Ox 97.6 F 108 H 18 97/45 91 04/02/18 12:43 04/02/18 14:28 04/02/18 14:28 04/02/18 12:42 04/02/18 12:42 General appearance: Present: no acute distress Results - Labs CBC & Chem 7: 03/31/18 03:46 04/02/18 04:50 Labs: Laboratory Last Values WBC 4.5 K/mm3 (4.5-11.0) 03/31/18 03:46 RBC 3.51 M/mm3 (3.65-5.03) L 03/31/18 03:46 Hgb 11.5 gm/dl (10.1-14.3) 03/31/18 03:46 Hct 35.1 % (30.3-42.9) 03/31/18 03:46 MCV 100 fl (79-97) H 03/31/18 03:46 MCH 33 pg (28-32) H 03/31/18 03:46 MCHC 33 % (30-34) 03/31/18 03:46 RDW 14.6 % (13.2-15.2) 03/31/18 03:46 Plt Count 213 K/mm3 (140-440) 03/31/18 03:46 Add Manual Diff Complete 03/31/18 03:46 Total Counted 100 03/31/18 03:46 Seg Neutrophils % Dental Equipment Repairer 03/30/18 13:04 Seg Neuts % (Manual) 90.0 % (40.0-70.0) H 03/31/18 03:46 Band Neutrophils % 1.0 % 03/31/18 03:46 Lymphocytes % (Manual) 9.0 % (13.4-35.0) L 03/31/18 03:46 Reactive Lymphs % (Man) 0 % 03/31/18 03:46 Monocytes % (Manual) 0 % (0.0-7.3) 03/31/18 03:46 Eosinophils % (Manual) 0 % (0.0-4.3) 03/31/18 03:46 Basophils % (Manual) 0 % (0.0-1.8) 03/31/18 03:46 Metamyelocytes % 0 % 03/31/18 03:46 Myelocytes % 0 % 03/31/18 03:46 Promyelocytes % 0 % 03/31/18 03:46 Blast Cells % 0 % 03/31/18 03:46 Nucleated RBC % Not Reportable 03/31/18 03:46 Seg Neutrophils # Man 4.1 K/mm3 (1.8-7.7) 03/31/18 03:46 Band Neutrophils # 0.0 K/mm3 03/31/18 03:46 Lymphocytes # (Manual) 0.4 K/mm3 (1.2-5.4) L 03/31/18 03:46 Abs React Lymphs (Man) 0.0 K/mm3 03/31/18 03:46 Monocytes # (Manual) 0.0 K/mm3 (0.0-0.8) 03/31/18 03:46 Eosinophils # (Manual) 0.0 K/mm3 (0.0-0.4) 03/31/18 03:46 Basophils # (Manual) 0.0 K/mm3 (0.0-0.1) 03/31/18 03:46 Metamyelocytes # 0.0 K/mm3 03/31/18 03:46 Myelocytes # 0.0 K/mm3 03/31/18 03:46 Promyelocytes # 0.0 K/mm3 03/31/18 03:46 Blast Cells # 0.0 K/mm3 03/31/18 03:46 WBC Morphology Not Reportable 03/31/18 03:46 Hypersegmented Neuts Not Reportable 03/31/18 03:46 Hyposegmented Neuts Not Reportable 03/31/18 03:46 Hypogranular Neuts Not Reportable 03/31/18 03:46 Smudge Cells Not Reportable 03/31/18 03:46 Toxic Granulation Not Reportable 03/31/18 03:46 Toxic Vacuolation Not Reportable 03/31/18 03:46 Dohle Bodies Not Reportable 03/31/18 03:46 Pelger-Huet Anomaly Not Reportable 03/31/18 03:46 Rea Rods Not Reportable 03/31/18 03:46 Platelet Estimate Appears normal 03/31/18 03:46 Clumped Platelets Not Reportable 03/31/18 03:46 Plt Clumps, EDTA Not Reportable 03/31/18 03:46 Large Platelets Not Reportable 03/31/18 03:46 Giant Platelets Not Reportable 03/31/18 03:46 Platelet Satelliting Not Reportable 03/31/18 03:46 Plt Morphology Comment Not Reportable 03/31/18 03:46 RBC Morphology Not Reportable 03/31/18 03:46 Dimorphic RBCs Not Reportable 03/31/18 03:46 Polychromasia Not Reportable 03/31/18 03:46 Hypochromasia Not Reportable 03/31/18 03:46 Poikilocytosis Not Reportable 03/31/18 03:46 Anisocytosis Few 03/31/18 03:46 Microcytosis Not Reportable 03/31/18 03:46 Macrocytosis Not Reportable 03/31/18 03:46 Spherocytes Not Reportable 03/31/18 03:46 Pappenheimer Bodies Not Reportable 03/31/18 03:46 Sickle Cells Not Reportable 03/31/18 03:46 Target Cells Not Reportable 03/31/18 03:46 Tear Drop Cells Not Reportable 03/31/18 03:46 Ovalocytes Few 03/31/18 03:46 Helmet Cells Not Reportable 03/31/18 03:46 [place] Bodies Not Reportable 03/31/18 03:46 [place] Rings Not Reportable 03/31/18 03:46 [place] Cells Not Reportable 03/31/18 03:46 Bite Cells Not Reportable 03/31/18 03:46 Crenated Cell Not Reportable 03/31/18 03:46 Elliptocytes Not Reportable 03/31/18 03:46 Acanthocytes (Spur) Not Reportable 03/31/18 03:46 Rouleaux Not Reportable 03/31/18 03:46 Hemoglobin C Crystals Not Reportable 03/31/18 03:46 Schistocytes Not Reportable 03/31/18 03:46 Malaria parasites Not Reportable 03/31/18 03:46 Abiodun Bodies Not Reportable 03/31/18 03:46 Hem Pathologist Commnt No 03/31/18 03:46 D-Dimer 527.41 ng/mlDDU (0-234) H 03/30/18 13:08 POC ABG pH 7.420 (7.35-7.45) 03/31/18 03:51 POC ABG pCO2 34.7 (35-45) L 03/31/18 03:51 POC ABG pO2 62 (80-105) L 03/31/18 03:51 POC ABG HCO3 22.5 03/31/18 03:51 POC ABG Total CO2 24 03/31/18 03:51 POC ABG O2 Sat 92 03/31/18 03:51 POC ABG Base Excess -2 03/31/18 03:51 FiO2 50 % 03/31/18 03:51 Sodium 140 mmol/L (137-145) 04/02/18 04:50 Potassium 3.3 mmol/L (3.6-5.0) L 04/02/18 04:50 Chloride 99.5 mmol/L (98-107) 04/02/18 04:50 Carbon Dioxide 27 mmol/L (22-30) 04/02/18 04:50 Anion Gap 17 mmol/L 04/02/18 04:50 BUN 45 mg/dL (7-17) H 04/02/18 04:50 Creatinine 1.4 mg/dL (0.7-1.2) H 04/02/18 04:50 Estimated GFR 37 ml/min 04/02/18 04:50 BUN/Creatinine Ratio 32 % 04/02/18 04:50 Glucose 138 mg/dL (65-100) H 04/02/18 04:50 Calcium 8.7 mg/dL (8.4-10.2) 04/02/18 04:50 Total Creatine Kinase 132 units/L (30-135) 03/31/18 05:07 CK-MB (CK-2) 4.1 ng/mL (0.0-4.0) H 03/31/18 05:07 CK-MB (CK-2) Rel Index 3.1 (0-4) 03/31/18 05:07 Troponin T < 0.010 ng/mL (0.00-0.029) 03/31/18 05:07 NT-Pro-B Natriuret Pep 5251 pg/mL (0-900) H 03/30/18 13:08
[2018-04-02] MEDS ORDERED: SOLU-Medrol IV SCH (22:00)
[2018-04-02] MEDS: ROBITUSSIN PO PRN (22:15)
[2018-04-03] MEDS: LASIX IV SCH (05:42)
--- NOTE | 2018-04-03 09:04 | Progress Note ---
Assessment and Plan 68 y/o female with RA, COPD and Chronic respiratory failure admitted with worsening shortness of breath. Per patient ready to go home, feels she is at her baseline. Today is my first time evaluating the patient so I cannot argue against this. I have no objection with discharge as long as she feels she is at her baseline. Suggest prolonged steroid taper at discharge 40x4, 20x4, 10x4 then stop. Will arrange follow up with [facility] in the next 10-14 days. Continue Home COPD regimen. Subjective Date of service: 04/03/18 Interval history: No acute events overnight. Per patient feels good and wants to go home. Follows with [facility] as an outpatient. Objective Vital Signs - 12hr 04/02/18 04/02/18 04/03/18 21:31 21:59 01:00 Temperature 97.5 F L Pulse Rate 75 Pulse Rate [ 109 H 115 H Anterior Bilateral Throughout] Respiratory 17 Rate Respiratory 20 20 Rate [Anterior Bilateral Throughout] Blood Pressure 98/57 O2 Sat by Pulse 92 85 Oximetry 04/03/18 05:08 Temperature Pulse Rate 111 H Pulse Rate [ Anterior Bilateral Throughout] Respiratory Rate Respiratory Rate [Anterior Bilateral Throughout] Blood Pressure O2 Sat by Pulse Oximetry Constitutional: alert, other (hoarse) Eyes: non-icteric ENT: oropharynx moist Neck: supple Ascultation: Bilateral: clear, diminished breath sounds Cardiovascular: regular rate and rhythm Gastrointestinal: normoactive bowel sounds, non-distended Integumentary: normal Extremities: no cyanosis, no edema Neurologic: normal mental status, non-focal exam Psychiatric: mood appropriate, affect normal CBC and BMP: 03/31/18 03:46 04/02/18 04:50 ABG, PT/INR, D-dimer: ABG POC ABG pH 7.420 (7.35-7.45) 03/31/18 03:51 POC ABG pCO2 34.7 (35-45) L 03/31/18 03:51 POC ABG pO2 62 (80-105) L 03/31/18 03:51 POC ABG HCO3 22.5 03/31/18 03:51 POC ABG Total CO2 24 03/31/18 03:51 POC ABG O2 Sat 92 03/31/18 03:51 PT/INR, D-dimer D-Dimer 527.41 ng/mlDDU (0-234) H 03/30/18 13:08 Abnormal lab findings: Abnormal Labs 03/30/18 03/30/18 03/30/18 13:04 13:08 13:08 RBC 3.59 L MCV 100 H MCH 33 H Seg Neuts % (Manual) 92.0 H Lymphocytes % (Manual) 5.0 L Lymphocytes # (Manual) 0.4 L D-Dimer 527.41 H POC ABG pCO2 POC ABG pO2 Potassium Chloride 107.8 H Carbon Dioxide 20 L BUN 26 H Creatinine 1.4 H Glucose 170 H Total Creatine Kinase CK-MB (CK-2) NT-Pro-B Natriuret Pep 5251 H 03/30/18 03/31/18 03/31/18 14:39 00:26 03:46 RBC 3.51 L MCV 100 H MCH 33 H Seg Neuts % (Manual) 90.0 H Lymphocytes % (Manual) 9.0 L Lymphocytes # (Manual) 0.4 L D-Dimer POC ABG pCO2 30.9 L POC ABG pO2 54 L Potassium Chloride Carbon Dioxide BUN Creatinine Glucose Total Creatine Kinase 139 H CK-MB (CK-2) NT-Pro-B Natriuret Pep 03/31/18 03/31/18 03/31/18 03:46 03:51 05:07 RBC MCV MCH Seg Neuts % (Manual) Lymphocytes % (Manual) Lymphocytes # (Manual) D-Dimer POC ABG pCO2 34.7 L POC ABG pO2 62 L Potassium Chloride Carbon Dioxide 21 L BUN 25 H Creatinine 1.6 H Glucose 168 H Total Creatine Kinase CK-MB (CK-2) 4.1 H NT-Pro-B Natriuret Pep 04/02/18 04:50 RBC MCV MCH Seg Neuts % (Manual) Lymphocytes % (Manual) Lymphocytes # (Manual) D-Dimer POC ABG pCO2 POC ABG pO2 Potassium 3.3 L Chloride Carbon Dioxide BUN 45 H Creatinine 1.4 H Glucose 138 H Total Creatine Kinase CK-MB (CK-2) NT-Pro-B Natriuret Pep
[2018-04-03] MEDS: PULMICORT IH SCH (09:21)
[2018-04-03] MEDS: BROVANA NEBU IH SCH (09:21)
[2018-04-03] MEDS: DUONEB *Not for PRN Use IH SCH ×3 (09:22→19:32)
[2018-04-03 10:18] VITALS: BP 122/48
--- NOTE | 2018-04-03 11:43 | Discharge Summary ---
Providers - Providers Date of Admission: 03/30/18 22:40 Attending physician: CYNTHIA MICHAEL MD 03/30/18 23:50 Consult to Physician [CONS] Routine Comment: Consulting Provider: MARY BAPTISTE Physician Instructions: Reason For Exam: chf 03/31/18 10:08 Consult to Physician [CONS] Routine Comment: Consulting Provider: RAMIRO SMITH Physician Instructions: Reason For Exam: pulmonary HTN Primary care physician: MORIS PÉREZ MD Hospitalization Reason for admission: SHORTNESS OF BREATH Condition: Stable Hospital course: 68-year-old woman with a history of CHF, COPD, pulmonary hypertension comes emergency room complaints are shortness breath, dyspnea on exertion, PND and orthopnea. Over the last 2 months she has had increasingly shortness of breath, cough productive of yellow phlegm 2 months. Status post antibiotics and steroid treatment. Patient was seen by cardiology, and started on cardiac optim zation with steroids and and lasix. electrolytes were repleted. Her oxygenation improved to her baseline. Discharge Diagnosis. Acute on chronic respiratory failure Acute right sided heart failure Cor pulmonale EX Smoker COPD Exacerbation Severe pulmonary HTN - RVSP 108mmHg Acute on chronic renal insufficiency Rheumatoid arthritis Elevated DDimer - V/Q scan low prob for PE Hypokalemia Disposition: DC/TX-06 HOME UNDER HOME [facility] Time spent for discharge: 35 mins Core Measure Documentation - Palliative Care Palliative Care/ Comfort Measures: Not Applicable - Core Measures Any of the following diagnoses?: none Exam - Physical Exam Narrative exam: VITAL SIGNS: Reviewed. GENERAL: The patient appeared chronically ill-appearing with hoarseness of voice and anxious appearing. Vital signs as documented. HEAD: No signs of head trauma. EYES: Pupils are equal. Extraocular motions intact. EARS: Hearing grossly intact. MOUTH: Oropharynx is normal. NECK: No adenopathy, no JVD. CHEST: Chest with diminished breath sounds bilaterally. Tripod position CARDIAC: Regular rate and rhythm. S1 and S2, without murmurs, gallops, or rubs. VASCULAR: No Edema. Peripheral pulses normal and equal in all extremities. ABDOMEN: Soft, without detectable tenderness. No sign of distention. No rebound or guarding, and no masses palpated. Bowel Sounds normal. MUSCULOSKELETAL: Good range of motion of all major joints. Extremities without clubbing, cyanosis or edema. NEUROLOGIC EXAM: Alert and oriented x 3. No focal sensory or strength deficits. Speech normal although with intermittent break due to shortness of breath. Follows commands. PSYCHIATRIC: Mood anxious SKIN: Appropriate ankle some blebs - Constitutional Vitals: Temp Pulse Resp BP Pulse Ox 97.6 F 70 18 122/48 88 04/03/18 08:48 04/03/18 08:48 04/03/18 08:48 04/03/18 08:48 04/03/18 08:48 Plan Activity: advance as tolerated, fall precautions Diet: low salt Special Instructions: record daily BP diary Follow up with: PRIMARY CARE, [Referring] - 3-5 Days GIO PATEL MD [Staff Physician] - 7 Days MARY BAPTISTE MD [Staff Physician] - 7 Days Prescriptions: Prednisone [predniSONE 10 mg (6-Day Pack, 21 Tabs)] 10 mg PO .TAPER #1 tab.ds.pk
--- NOTE | 2018-04-03 12:04 | Progress Note ---
Assessment and Plan Assessment: Acute on chronic respiratory failure Acute right sided heart failure Cor pulmonale COPD Severe pulmonary HTN - RVSP 108mmHg Acute on chronic renal insufficiency Rheumatoid arthritis Elevated DDimer - V/Q scan low prob for PE Hypokalemia Plan: Replete K+. Currently stable cardiac status. Pt may discharge home from cardiology standpoint on home cardiac regimen. Recommend pt follow up in our office with Dr. Aceves within 3-5 days of hospital discharge ([phone]). Pt verbalizes understanding and states she will call and make her own appt. The patient has been seen in conjunction with Dr. Sarmiento who agrees with the assessment and plan of care. Subjective Date of service: 04/03/18 Principal diagnosis: HF; pulm HTN Interval history: pt sitting up at bedside comfortably, states she is feeling much better and is ready for discharge home today. in SR with the [facility] PACs on telemetry. Objective Last Vital Signs Temp 97.6 F 04/03/18 08:48 Pulse 70 04/03/18 08:48 Resp 18 04/03/18 08:48 BP 122/48 04/03/18 08:48 Pulse Ox 88 04/03/18 08:48 - Physical Examination General: No Apparent Distress HEENT: Positive: EOMI Neck: Positive: neck supple, JVD/HJR Cardiac: Positive: Reg Rate and Rhythm, S1/S2 Lungs: Positive: Decreased Breath Sounds Neuro: Positive: Grossly Intact Abdomen: Positive: Soft Skin: Positive: Clear Extremities: Present: normal. Absent: edema - Imaging and Cardiology EKG: image reviewed Echo: report reviewed (09/2017 severe RV dilatation and moderate RV dysfunction severe pulmonary hypertension RVSP 100 mmHg normal LV function D shaped septum) Cardiac cath: report reviewed (2011 normal coronaries) - Telemetry EKG Rhythm: Sinus Rhythm
[2018-04-03] MEDS: TADALAFIL 20 MG PO SCH (12:41)
[2018-04-03] MEDS: LETAIRIS 10 MG PO SCH (12:42)
[2018-04-03] MEDS: XANAX PO SCH (12:43)
[2018-04-03] MEDS: PROTONIX PO SCH (12:43)
[2018-04-03] MEDS: LOVENOX SUB-Q SCH (12:44)
[2018-04-03] MEDS: BABY ASPIRIN PO SCH (12:44)
[2018-04-03] MEDS ORDERED: K-DUR PO ONE (13:00)
--- NOTE | 2018-04-07 16:11 | Query- Renal Failure ---
Deabijal Duffy Date:___04/07/18 Material Loader/CDS:_shailesh/jesn Phone#:__[phone] Exercise your independent professional judgment when responding to query. Questions asked do not imply a particular answer is desired or expected. We greatly appreciate your clarification on this issue. Clinical Documentation States: 68-year-old woman with a history of CHF, COPD, pulmonary hypertension comes emergency room complaints are shortness breath, dyspnea on exertion, PND and orthopnea. Over the last 2 months she has had increasingly shortness of breath, cough productive of yellow phlegm 2 months. Status post antibiotics and steroid treatment. Patient was seen by cardiology, and started on cardiac optimzation with steroids and and lasix. electrolytes were repleted. Her oxygenation improved to her baseline. Discharge Diagnosis. Acute on chronic respiratory failure Acute right sided heart failure Cor pulmonale EX Smoker COPD Exacerbation Severe pulmonary HTN - RVSP 108mmHg Acute on chronic renal insufficiency Clinical Findings Show: 03/30/18 03/31/18 04/02/18 Creatinine 1.4 1.6 1.4 Bun/Cr ratio 19 16 32 Please clarify if you mean: Acute Renal Failure with or due to: [ ] Tubular Necrosis [ ] Medullary Necrosis [x ] Vasomotor Nephropathy [ ] Shock Kidney [ ] Tubular Nephrosis [ ] Renal Tubular Stasis [ ] Cortical Necrosis [ ] Acute Renal Failure (unspecified) [ ] Lower Tubular Nephrosis [ ] Other: [ ] Not Applicable Present on Admission: [ ] Yes (Y) [ ] Clinically undeterminable (W) [ ] No (N) Please also document response in your Progress Notes and/or Discharge Summary and indicate if the condition was present on admission. BRIGIDOD
== END 2018-04-03 16:00 | disposition home or self-care (01) | DRG 682 ==
LOC: ED 12:39 → 4A 22:40
PROVIDERS: ADMIT Internal Medicine; ATTEND Internal Medicine
PROC: 4A033R1 Measurement of Arterial Saturation, Peripheral, Percutaneous Approach (ICD-10-PCS; principal; 2018-03-31)
PROC: 3E0234Z Introduction of Serum, Toxoid and Vaccine into Muscle, Percutaneous Approach (ICD-10-PCS; 2018-03-31)
DX: N17.9 Acute kidney failure, unspecified (principal); J96.21 Acute and chronic respiratory failure with hypoxia; J44.1 Chronic obstructive pulmonary disease with (acute) exacerbation; J44.0 Chronic obstructive pulmonary disease with (acute) lower respiratory infection; I50.9 Heart failure, unspecified; I27.20 Pulmonary hypertension, unspecified; M06.9 Rheumatoid arthritis, unspecified; I27.81 Cor pulmonale (chronic); E87.6 Hypokalemia; N18.9 Chronic kidney disease, unspecified; E78.5 Hyperlipidemia, unspecified; Z87.891 Personal history of nicotine dependence; J20.9 Acute bronchitis, unspecified; Z23 Encounter for immunization
CPT/HCPCS: 36415; 36600; 71045; 78582; 80048; 82550; 82553; 82803; 83880; 84484; 85007; 85025; 85379; 90471; 90686; 90732; 93005; 93010; 94640; 94760; 96374; 96375; 96376; 99285; G0378; A9540; A9558; G0008; G0009; J1650; J1940; J2270; J2920; J2930

== ENCOUNTER 2018-06-08 20:04 | Emergency (ER) | payer MEDICARE ==
--- NOTE | 2018-06-08 20:26 | Emergency Department Report ---
Blank Doc - Documentation Documentation: This is a 68-year-old female that presents with SOB. Has URI symptoms. This initial assessment/diagnostic orders/clinical plan/treatment(s) is/are subject to change based on patient's health status, clinical progression and re- assessment by fellow clinical providers in the ED. Further treatment and workup at subsequent clinical providers discretion. Patient/guardians urged not to elope from the ED as their condition may be serious if not clinically assessed and managed. Initial orders include: 1- Patient sent to MAIN ED for further evaluation and treatment 2- Labs 3- EKg 4- CXR
--- NOTE | 2018-06-08 20:52 | Emergency Department Report ---
ED Shortness of Breath HPI - General Chief Complaint: Dyspnea/Respdistress Stated Complaint: OXYGEN LEVELS LOW Time Seen by Provider: 06/08/18 20:41 Source: patient, family Mode of arrival: Ambulatory Limitations: Other - History of Present Illness Initial Comments: Patient is a 68-year-old female who presents to emergency room with complaints of shortness of breath. Patient states she is always short of breath but this one is worse. Patient states she is having increased exertion. Patient states she is also having low oxygen sats at home. Patient states she takes 2 L O2 at home. Patient states also cough and congestion. Patient states she has a history of COPD, CHF and pulmonary hypertension. Patient states she traveled by plane to [place] week ago to see a pulmonary hypertension specialist. MD Complaint: shortness of breath, cough -: Sudden Severity: severe Consistency: constant Improves With: bronchodilators, upright position Worsens With: lying flat, exertion, movement Known History Of: COPD, congestive heart failure Context: recent URI Associated Symptoms: sputum production, orhopnia Treatments Prior to Arrival: oxygen, bronchodilator - Related Data Home Oxygen Therapy: Yes Home Oxygen Amount: 2 Liters Home Medications Medication Instructions Recorded Confirmed Last Taken ALBUTEROL NEB's [Proventil 0.083% 2.5 mg IH TID PRN 03/30/18 03/30/18 03/30/18 NEBS] ALPRAZolam [Xanax TAB] 0.5 mg PO TID 03/30/18 03/30/18 Unknown Albuterol Sulfate [Ventolin HFA] 2 puff IH Q4H PRN 03/30/18 03/30/18 Unknown Ambrisentan [Letairis] 10 mg PO QDAY 03/30/18 03/30/18 03/30/18 Fluticasone/Salmeterol [Advair 1 each IH BID 03/30/18 03/30/18 Unknown 500-50 Diskus] Furosemide [Lasix TAB] 40 mg PO QDAY 03/30/18 03/30/18 03/30/18 Omeprazole 20 mg PO QDAY 03/30/18 03/30/18 03/30/18 Potassium Chloride [Klor-Con M20] 20 meq PO QDAY 03/30/18 03/30/18 03/30/18 Tadalafil [Cialis] 20 mg PO BID 03/30/18 03/30/18 03/30/18 Letairis 10 mg PO DAILY 03/31/18 03/31/18 03/30/18 Previous Rx's Medication Instructions Recorded Last Taken Type Prednisone [predniSONE 10 mg 10 mg PO .TAPER #1 tab.ds.pk 04/03/18 Unknown Rx (6-Day Pack, 21 Tabs)] Allergies Allergy/AdvReac Type Severity Reaction Status Date / Time No Known Allergies Allergy Unverified 02/01/13 10:05 ED Review of Systems ROS: Stated complaint: OXYGEN LEVELS LOW Other details as noted in HPI Constitutional: denies: chills, fever Eyes: denies: eye pain, eye discharge, vision change ENT: denies: ear pain, throat pain Respiratory: cough, shortness of breath, SOB with exertion, SOB at rest, wheezing Cardiovascular: denies: chest pain, palpitations Endocrine: no symptoms reported Gastrointestinal: denies: abdominal pain, nausea, diarrhea Genitourinary: denies: urgency, dysuria, discharge Musculoskeletal: denies: back pain, joint swelling, arthralgia Skin: denies: rash, lesions Neurological: denies: headache, weakness, paresthesias Psychiatric: denies: anxiety, depression Hematological/Lymphatic: denies: easy bleeding, easy bruising ED Past Medical Hx - Past Medical History Previous Medical History?: Yes Hx Hypertension: Yes Hx Congestive Heart Failure: Yes Hx Renal Disease: Yes Hx COPD: Yes Additional medical history: Pulmonary Htn - Surgical History Past Surgical History?: Yes Additional Surgical History: Hysterectomy - Family History Family history: no significant - Social History Smoking Status: Former Smoker Substance Use Type: Alcohol - Medications Home Medications: Home Medications Medication Instructions Recorded Confirmed Last Taken Type ALBUTEROL NEB's [Proventil 0.083% 2.5 mg IH TID PRN 03/30/18 03/30/18 03/30/18 History NEBS] ALPRAZolam [Xanax TAB] 0.5 mg PO TID 03/30/18 03/30/18 Unknown History Albuterol Sulfate [Ventolin HFA] 2 puff IH Q4H PRN 03/30/18 03/30/18 Unknown History Ambrisentan [Letairis] 10 mg PO QDAY 03/30/18 03/30/18 03/30/18 History Fluticasone/Salmeterol [Advair 1 each IH BID 03/30/18 03/30/18 Unknown History 500-50 Diskus] Furosemide [Lasix TAB] 40 mg PO QDAY 03/30/18 03/30/18 03/30/18 History Omeprazole 20 mg PO QDAY 03/30/18 03/30/18 03/30/18 History Potassium Chloride [Klor-Con M20] 20 meq PO QDAY 03/30/18 03/30/18 03/30/18 History Tadalafil [Cialis] 20 mg PO BID 03/30/18 03/30/18 03/30/18 History Letairis 10 mg PO DAILY 03/31/18 03/31/18 03/30/18 History Prednisone [predniSONE 10 mg 10 mg PO .TAPER #1 tab.ds.pk 04/03/18 Unknown Rx (6-Day Pack, 21 Tabs)] ED Physical Exam - General Limitations: Physical Limitation, Other General appearance: alert, in distress - Head Head exam: Present: atraumatic, normocephalic - Eye Eye exam: Present: normal appearance, PERRL Pupils: Present: normal accommodation - ENT ENT exam: Present: mucous membranes moist - Neck Neck exam: Present: normal inspection - Respiratory Respiratory exam: Present: respiratory distress, decreased breath sounds, prolonged expiratory - Cardiovascular Cardiovascular Exam: Present: regular rate, normal rhythm. Absent: systolic murmur, diastolic murmur, rubs, gallop - GI/Abdominal GI/Abdominal exam: Present: soft, normal bowel sounds - Rectal Rectal exam: Present: deferred - Extremities Exam Extremities exam: Present: normal inspection - Back Exam Back exam: Present: normal inspection - Neurological Exam Neurological exam: Present: alert, oriented X3 - Psychiatric Psychiatric exam: Present: normal affect, normal mood - Skin Skin exam: Present: warm, dry, intact, normal color. Absent: rash ED Course Vital Signs 06/08/18 06/08/18 06/08/18 20:27 21:00 21:16 Pulse Rate 65 76 56 L Pulse Rate [ Anterior Bilateral Throughout] Respiratory 21 30 H Rate Respiratory Rate [Anterior Bilateral Throughout] Blood Pressure 109/57 Blood Pressure 118/47 [Right] O2 Sat by Pulse 85 93 Oximetry 06/08/18 06/08/18 06/08/18 22:01 23:00 23:12 Pulse Rate 76 86 Pulse Rate [ 65 Anterior Bilateral Throughout] Respiratory 24 19 Rate Respiratory 21 Rate [Anterior Bilateral Throughout] Blood Pressure Blood Pressure 105/60 110/57 [Right] O2 Sat by Pulse 93 93 Oximetry 06/08/18 23:22 Pulse Rate Pulse Rate [ 70 Anterior Bilateral Throughout] Respiratory Rate Respiratory 22 Rate [Anterior Bilateral Throughout] Blood Pressure Blood Pressure [Right] O2 Sat by Pulse Oximetry - Reevaluation(s) Reevaluation #1: Patient hypoxic and not improving on 4 L of nasal cannula. Patient was placed on BiPAP. 06/08/18 21:10 Patient on BiPAP and her work of breathing has decreased. Patient's oxygen saturation is much better. Patient states she is feeling better. Patient is wheezing, patient will be given DuoNeb and other medications. 06/08/18 21:24 Patient's lung sounds are clear. Patient's work to breathe has resolved. SHe still on BiPAP. patient's d-dimer, WE will order a nuclear medicine study 06/08/18 23:23 After the hospitalist was consulted and patient states she does not want to be admitted and wants to sign out AMA. Discussed with patient. Patient was understanding of all risks. Patient signed AMA. Patient is of sound mind to make this decision. 06/09/18 02:09 06/09/18 02:11 - Consultations Consultation #1: Hospitalist consult for admission. Hospitalist to admit patient and assume care of patient. 06/09/18 02:01 ED Medical Decision Making - Lab Data Result diagrams: 06/08/18 20:53 06/08/18 20:53 - EKG Data -: EKG Interpreted by [facility] EKG shows normal: sinus rhythm, axis, intervals, ST-T waves Rate: normal - EKG Data Interpretation: other (incomplete right bundle-branch block) - Radiology Data Radiology results: report reviewed PROCEDURE: NM PULMONARY QUANTITATIVE DIFFERENTIAL PERFUSION AND VENTILATION IMAGING. TECHNIQUE: 4.33 mCi Tc-99m MAA was injected IV for quantitative differential pulmonary perfusion imaging in multiple projections. 15.11 mCi xenon-133 aerosol was inhaled for quantitative differ ential pulmonary ventilation imaging in multiple projections. Injection site: RIGHT antecubital fossa. CPT 96309 REGULATORY GUIDELINES: The patient was released based upon guidelines est ablished in [place] State Regulations for Protection Against Radiation, Chapter 1199-04-27-35, Release of Individuals Containing Radioactive Drugs or Implants. HISTORY: Shortness of breath COMPARISONS: March 30, 2018 . FINDINGS: Perfusion: No defects . Ventilation: No defects . IMPRESSION: Normal Examination . There is no evidence of pulmonary embolism. PROCEDURE: XR CHEST 1V AP TECHNIQUE: Single AP chest HISTORY: Dyspnea COMPARISONS: March 30 FINDINGS: Cardiac silhouette is markedly enlarged and unchanged. Pulmonary vasculature is within normal limits. There is no evidence of airspace consolidation or pleural effusions. No significant interval change. IMPRESSION: Prominent cardiomegaly, unchanged since the prior examination. No significant interval change.. - Medical Decision Making Patient is a 68-year-old female that presents emergency room for shortness of breath and dyspnea on exertion. Patient found to be hypoxic and increased work of breath. Patient was placed on BiPAP and symptoms improved. Patient had an elevated d-dimer and required a nuclear scan. Scan was negative for PE. Patient's chest x-ray normal limits. Clinical findings consistent with a CHF exacerbation as well as COPD exacerbation. Patient's labs are unremarkable except for renal insufficiency, elevated d-dimer, elevated BNP. Hospitalist consult for admission. Hospitalist agreed to admit patient. However the patient decided to refuse admission and signed out AMA. Risk was fully discussed with patient. Patient voiced understanding of the risk of leaving the hospital AGAINST MEDICAL ADVICE. - Differential Diagnosis sob. copd. chf. pe Critical Care Time: Yes Critical care attestation.: If time is entered above; I have spent that time in minutes in the direct care of this critically ill patient, excluding procedure time. Critical Care Time: 65 MINUTES ED Disposition Clinical Impression: COPD exacerbation, Renal insufficiency, Pulmonary hypertension, Hypoxia, Elevated brain natriuretic peptide (BNP) level, Elevated d-dimer Dyspnea Qualifiers: Dyspnea type: shortness of breath Qualified Code(s): R06.02 - Shortness of breath CHF exacerbation Qualifiers: Heart failure type: unspecified Qualified Code(s): I50.9 - Heart failure, unspecified Disposition: -07 LEFT AGAINST MED ADVICE Is pt being admited?: Yes Does the pt Need Aspirin: No Condition: Critical Forms: AMA Form Time of Disposition: 01:43
[2018-06-08 21:13] LABS: Basophils % (Auto) 0.8 % (0.0-1.8); Eosinophils # (Auto) 0.1 K/mm3 (0.0-0.4); Eosinophils % (Auto) 1.4 % (0.0-4.3); Hemoglobin 10.6 gm/dl (10.1-14.3); Lymphocytes # (Auto) 0.7 K/mm3 (1.2-5.4); Lymphocytes % (Auto) 12.4 % (13.4-35.0); Mean Corpuscular HGB Conc 33 % (30-34); Mean Corpuscular Volume 93 fl (79-97); Monocytes # (Auto) 0.6 K/mm3 (0.0-0.8); Monocytes % (Auto) 10.5 % (0.0-7.3); Platelet Count 241 K/mm3 (140-440); Red Blood Count 3.45 M/mm3 (3.65-5.03); Red Cell Distribution Width 15.8 % (13.2-15.2)
[2018-06-08 21:23] LABS: INR 1.09 (0.87-1.13)
[2018-06-08 21:24] LABS: Partial Thromboplastin Time 29.3 Sec. (24.2-36.6)
[2018-06-08] MEDS ORDERED: DUONEB *Not for PRN Use IH ONE (21:25)
[2018-06-08] MEDS ORDERED: MAGNESIUM SULFATE 2GM/50ML 2 GM/50 ML BAG IV ONE (21:25)
[2018-06-08] MEDS ORDERED: SOLU-Medrol IV ONE (21:25)
[2018-06-08] MEDS ORDERED: MAXIPIME/NS 2 GM/100 ML 2 GM/100 ML BAG IV ONE (21:25)
--- NOTE | 2018-06-08 21:35 | XRay Report ---
PROCEDURE: XR CHEST 1V AP TECHNIQUE: Single AP chest HISTORY: Dyspnea COMPARISONS: March 30 FINDINGS: Cardiac silhouette is markedly enlarged and unchanged. Pulmonary vasculature is within normal limits. There is no evidence of airspace consolidation or pleural effusions. No significant interval change. IMPRESSION: Prominent cardiomegaly, unchanged since the prior examination. No significant interval change.. This document is electronically signed by Alonso Betancur MD., June 08 2018 09:33:23 PM ET
[2018-06-08 22:03] LABS: Creatine Kinase MB 6.4 ng/mL (0.0-4.0)
[2018-06-08 22:04] LABS: Calcium 8.3 mg/dL (8.4-10.2)
--- NOTE | 2018-06-09 01:27 | Nuclear Medicine Report ---
PROCEDURE: NM PULMONARY QUANTITATIVE DIFFERENTIAL PERFUSION AND VENTILATION IMAGING. TECHNIQUE: 4.33 mCi Tc-99m MAA was injected IV for quantitative differential pulmonary perfusion josh ging in multiple projections. 15.11 mCi xenon-133 aerosol was inhaled for quantitative differential p ulmonary ventilation imaging in multiple projections. Injection site: RIGHT antecubital fossa. CPT 78 582 REGULATORY GUIDELINES: The patient was released based upon guidelines established in [facility] [employer] for Protection Against Radiation, Chapter 4821-92-61-35, Release of Individuals Containing Radio active Drugs or Implants. HISTORY: Shortness of breath COMPARISONS: March 30, 2018 . FINDINGS: Perfusion: No defects . Ventilation: No defects . IMPRESSION: Normal Examination . There is no evidence of pulmonary embolism. This document is electronically signed by Jaren Escobar MD., June 09 2018 01:25:25 AM ET
[2018-06-09 01:52] VITALS: BP 110/57
== END 2018-06-09 02:37 | disposition left against medical advice (07) ==
LOC: ED 20:04
DX: J44.1 Chronic obstructive pulmonary disease with (acute) exacerbation (principal); N28.9 Disorder of kidney and ureter, unspecified; I11.0 Hypertensive heart disease with heart failure; Z90.710 Acquired absence of both cervix and uterus; Z87.891 Personal history of nicotine dependence
CPT/HCPCS: 36415; 71045; 78582; 80048; 82550; 82553; 83880; 84484; 85025; 85379; 85610; 85730; 93005; 93010; 94640; 96365; 96368; 96375; 99285; A9540; A9558; J0692; J2930; J3475

== ENCOUNTER 2018-06-26 11:16 | Emergency (ER) | payer MEDICARE ==
[2018-06-26] MEDS ORDERED: ATROVENT IH ONE ×2 (11:31→11:38)
[2018-06-26] MEDS ORDERED: PROVENTIL IH ONE ×2 (11:32→11:38)
[2018-06-26] MEDS ORDERED: SOLU-Medrol IV ONE (11:50)
--- NOTE | 2018-06-26 11:57 | Emergency Department Report ---
ED Shortness of Breath HPI - General Chief Complaint: Dyspnea/Respdistress Stated Complaint: SOB Time Seen by Provider: 06/26/18 11:32 Source: patient, old records reviewed Mode of arrival: Ambulatory Limitations: No Limitations - History of Present Illness Initial Comments: 68-year-old female past medical history of COPD on home oxygen, CHF, hypertensi on, and chronic kidney disease presents complaining of progressively worsening shortness of breath for several weeks. Patient states symptoms worsened this morning. she presents on 3 L of oxygen saturation 84%. She has a productive cough without fever. She complains of orthopnea and PND. She no longer smokes and denies previous history of intubations. Patient states she had an outpatient echo one week ago. She also had a recent ER visits with hospitalization and recommended patient signed AMA. PMD: Amos Lagunas, industrial electrician journeyman Dr. Ta, volunteer manager: Dr. Amezcua, assembly cleaner: Dr. Aceves - Related Data Home Medications Medication Instructions Recorded Confirmed Last Taken ALBUTEROL NEB's [Proventil 0.083% 2.5 mg IH TID PRN 03/30/18 06/26/18 03/30/18 NEBS] ALPRAZolam [Xanax TAB] 0.5 mg PO TID 03/30/18 06/26/18 Unknown Albuterol Sulfate [Ventolin HFA] 2 puff IH Q4H PRN 03/30/18 06/26/18 Unknown Ambrisentan [Letairis] 10 mg PO QDAY 03/30/18 06/26/18 03/30/18 Fluticasone/Salmeterol [Advair 1 each IH BID 03/30/18 06/26/18 Unknown 500-50 Diskus] Furosemide [Lasix TAB] 40 mg PO QDAY 03/30/18 06/26/18 03/30/18 Omeprazole 20 mg PO QDAY 03/30/18 06/26/18 03/30/18 Potassium Chloride [Klor-Con M20] 20 meq PO QDAY 03/30/18 06/26/18 03/30/18 Tadalafil [Cialis] 20 mg PO BID 03/30/18 06/26/18 03/30/18 Allergies Allergy/AdvReac Type Severity Reaction Status Date / Time No Known Allergies Allergy Unverified 02/01/13 10:05 ED Review of Systems ROS: Stated complaint: SOB Other details as noted in HPI Comment: All other systems reviewed and negative ED Past Medical Hx - Past Medical History Previous Medical History?: Yes Hx Hypertension: Yes Hx Congestive Heart Failure: Yes Hx Renal Disease: Yes (chronic kidney disease) Hx COPD: Yes (home oxygen) Additional medical history: Pulmonary Htn - Surgical History Past Surgical History?: Yes Additional Surgical History: Hysterectomy - Social History Smoking Status: Former Smoker Substance Use Type: Alcohol - Medications Home Medications: Home Medications Medication Instructions Recorded Confirmed Last Taken Type ALBUTEROL NEB's [Proventil 0.083% 2.5 mg IH TID PRN 03/30/18 06/26/18 03/30/18 History NEBS] ALPRAZolam [Xanax TAB] 0.5 mg PO TID 03/30/18 06/26/18 Unknown History Albuterol Sulfate [Ventolin HFA] 2 puff IH Q4H PRN 03/30/18 06/26/18 Unknown History Ambrisentan [Letairis] 10 mg PO QDAY 03/30/18 06/26/18 03/30/18 History Fluticasone/Salmeterol [Advair 1 each IH BID 03/30/18 06/26/18 Unknown History 500-50 Diskus] Furosemide [Lasix TAB] 40 mg PO QDAY 03/30/18 06/26/18 03/30/18 History Omeprazole 20 mg PO QDAY 03/30/18 06/26/18 03/30/18 History Potassium Chloride [Klor-Con M20] 20 meq PO QDAY 03/30/18 06/26/18 03/30/18 History Tadalafil [Cialis] 20 mg PO BID 03/30/18 06/26/18 03/30/18 History ED Physical Exam - General Limitations: No Limitations - Other Other exam information: General: No limitations, patient is alert in no acute distress Head exam: Atraumatic, normocephalic Eyes exam: Normal appearance ENT: Moist mucous membrane, normal oropharynx Neck exam: Normal inspection, full range of motion, no meningismus nontender Respiratory exam: Tachypnea, hoarse, minimal wheezing, no crackles Cardiovascular: Normal rate and rhythm, loud murmur Abdomen: Soft, nondistended, and nontender, with normal bowel sounds, no rebound, or guarding Extremity: Full range of motion normal inspection no deformity, minimal leg edema Back: Normal Inspection, full range of motion, no tenderness Neurologic: Alert, oriented x3, cranial nerves intact, no motor or sensory deficit Psychiatric: normal affect, normal mood Skin: Warm, dry, intact melanoma ED Course Vital Signs 06/26/18 06/26/18 06/26/18 11:30 11:46 12:00 Temperature Pulse Rate 66 78 69 Respiratory 20 13 24 Rate Blood Pressure Blood Pressure [Left] O2 Sat by Pulse 87 94 86 Oximetry 06/26/18 06/26/18 12:22 12:23 Temperature 98.1 F 98.1 F Pulse Rate 79 79 Respiratory 25 H 25 H Rate Blood Pressure 109/61 Blood Pressure 109/61 [Left] O2 Sat by Pulse 86 86 Oximetry - Consultations Consultation #1: 06/26/18 14:45 consults placed with polanco (pulm), cards (Gagnon), and renal (moise/rock). Specialists informed of consult. Consultation #2: 06/26/18 16:16 I received a call from Dr. Parham pulmonologists affiliated with [facility]. He states that Dr. Ta was referred patient to him and he ordered outpatient echocardiogram show significant RV failure secondary to severe pulm htn. Patient has really bad pulmonary hypertension and needs specific intravenous treatment and requests transfer to [facility]. He will call back once he can confirm bed availability. 06/26/18 16:24 Received call back from [facility] with conference call with industrial electrician journeyman and advertising sales representative Dr. Braden. They have accepted patient to [facility] pending ICU bed availability. - ABG Interpretation Ph: 7.35 PCO2: 34 PO2: 51 Bicarbonate: 18 Interpretation: metabolic alkalosis, other (hypoxia) Additional Comments: compensated metabolic acidosis hypoxia preformed on 4L of Fi02 ED Medical Decision Making - Lab Data Result diagrams: 06/26/18 12:03 06/26/18 12:06 Lab Results 06/26/18 06/26/18 06/26/18 Range/Units 12:03 12:06 13:42 WBC 5.8 (4.5-11.0) K/mm3 RBC 3.33 L (3.65-5.03) M/mm3 Hgb 9.9 L (10.1-14.3) gm/dl Hct 29.8 L (30.3-42.9) % MCV 89 (79-97) fl MCH 30 (28-32) pg MCHC 33 (30-34) % RDW 16.5 H (13.2-15.2) % Plt Count 210 (140-440) K/mm3 Lymph % (Auto) 12.2 L (13.4-35.0) % [place] % (Auto) 12.2 H (0.0-7.3) % Eos % (Auto) 1.7 (0.0-4.3) % Baso % (Auto) 0.9 (0.0-1.8) % Lymph # 0.7 L (1.2-5.4) K/mm3 [place] # 0.7 (0.0-0.8) K/mm3 Eos # 0.1 (0.0-0.4) K/mm3 Baso # 0.1 (0.0-0.1) K/mm3 Seg Neutrophils % 73.0 H (40.0-70.0) % Seg Neutrophils # 4.2 (1.8-7.7) K/mm3 POC ABG pH 7.351 (7.35-7.45) POC ABG pCO2 34.1 L (35-45) POC ABG pO2 51 L (80-105) POC ABG HCO3 18.9 (22-26 mml/L) POC ABG Total CO2 20 (23-27mmol/L) POC ABG O2 Sat 85 POC ABG Base Excess -7 ((-2) - (+3)mmol/L) FiO2 36 % Sodium 135 L (137-145) mmol/L Potassium 3.7 (3.6-5.0) mmol/L Chloride 98.4 (98-107) mmol/L Carbon Dioxide 17 L (22-30) mmol/L Anion Gap 23 mmol/L BUN 47 H (7-17) mg/dL Creatinine 3.5 H (0.7-1.2) mg/dL Estimated GFR 13 ml/min BUN/Creatinine Ratio 13 % Glucose 84 (65-100) mg/dL Calcium 8.7 (8.4-10.2) mg/dL Total Bilirubin 1.40 H (0.1-1.2) mg/dL AST 29 (5-40) units/L ALT 13 (7-56) units/L Alkaline Phosphatase 104 (35-129) units/L Total Creatine Kinase 426 H (30-135) units/L CK-MB (CK-2) 12.4 H (0.0-4.0) ng/mL CK-MB (CK-2) Rel Index 2.9 (0-4) Troponin T 0.062 H (0.00-0.029) ng/mL Total Protein 6.0 L (6.3-8.2) g/dL Albumin 3.7 L (3.9-5) g/dL Albumin/Globulin Ratio 1.6 % Triglycerides 90 (2-149) mg/dL Cholesterol 115 (50-199) mg/dL LDL Cholesterol Direct 50 (50-130) mg/dL HDL Cholesterol 64 H (40-59) mg/dL Cholesterol/HDL Ratio 1.79 % - EKG Data -: EKG Interpreted by Me EKG shows normal: sinus rhythm, axis (qrs 74), QRS complexes (qrsd 129), ST-T waves (no stemi) Rate: normal (RBB) - EKG Data When compared to previous EKG there are: no significant change - Radiology Data Radiology results: image reviewed (cxr: read by me, offical report pending, cardiomegaly) - Medical Decision Making Patient presents with hypoxia and tachypnea without wheezing but diminished breath sounds. Some improvement after nebs. The patient had been here recently in March and April and as per medical record review has chronically elevated d-dimer and negative VQ scan during recent visits. Case discussed and consults were placed with cardiology, pulmonology, and nephrology. Hospitalist informed for admission. tx with nebs, mag, steroids in ed po asa - Differential Diagnosis CHF, valve disease, PE, pneumonia, bronchitis, COPD Critical Care Time: No Critical care attestation.: If time is entered above; I have spent that time in minutes in the direct care of this critically ill patient, excluding procedure time. ED Disposition Clinical Impression: Hypoxemia, COPD exacerbation, Acute on chronic renal failure, Elevated troponin, Compensated metabolic acidosis, Anemia, Cardiomegaly, Pulmonary hypertension Disposition: OP ADMIT IP TO THIS HOSP Is pt being admited?: Yes Condition: Stable Time of Disposition: 14:55 (DR Oshea/hosp)
[2018-06-26 12:33] LABS: Basophils # (Auto) 0.1 K/mm3 (0.0-0.1); Basophils % (Auto) 0.9 % (0.0-1.8); Eosinophils # (Auto) 0.1 K/mm3 (0.0-0.4); Eosinophils % (Auto) 1.7 % (0.0-4.3); Hematocrit 29.8 % (30.3-42.9); Hemoglobin 9.9 gm/dl (10.1-14.3); Lymphocytes # (Auto) 0.7 K/mm3 (1.2-5.4); Lymphocytes % (Auto) 12.2 % (13.4-35.0); Mean Corpuscular HGB Conc 33 % (30-34); Mean Corpuscular Volume 89 fl (79-97); Monocytes # (Auto) 0.7 K/mm3 (0.0-0.8); Monocytes % (Auto) 12.2 % (0.0-7.3); Platelet Count 210 K/mm3 (140-440); Red Blood Count 3.33 M/mm3 (3.65-5.03); Red Cell Distribution Width 16.5 % (13.2-15.2)
[2018-06-26] MEDS ORDERED: ZOFRAN IV ONE (12:45)
[2018-06-26 14:08] LABS: Creatine Kinase MB 12.4 ng/mL (0.0-4.0)
[2018-06-26 14:10] LABS: Albumin 3.7 g/dL (3.9-5); Calcium 8.7 mg/dL (8.4-10.2)
[2018-06-26 14:20] LABS: Chol/HDL Ratio 1.79 %
[2018-06-26] MEDS ORDERED: ASPIRIN PO ONE (14:56)
--- NOTE | 2018-06-26 14:58 | Consultation ---
History of Present Illness Consult date: 06/26/18 Requesting physician: LALO GALVEZ Consult reason: congestive heart failure History of present illness: The pt is a 68 YO female with a past medical history of COPD, chronic respiratory failure requiring home O2, cor pulmonale, severe pulmonary HTN, rheumatoid arthritis, HTN, CKD. She is followed in our office by Dr. Aceves. She presented with c/o progressively worsening shortness of breath for several weeks. Patient states symptoms worsened this morning. She presented on 3 L of oxygen saturation 84%. She has a productive cough without fever. She complains of orthopnea and PND. She no longer smokes and denies previous history of intubations. She had a recent ER visits with hospitalization recommended and patient signed AMA. Echo done 09/2017 showed severe RV dilatation and moderate RV dysfunction severe pulmonary hypertension RVSP 100 mmHg normal LV function D shaped septum. LHC done 2011 normal coronaries. Past History Past Medical History: other (as per hpi) Medications and Allergies Allergies Allergy/AdvReac Type Severity Reaction Status Date / Time No Known Allergies Allergy Unverified 02/01/13 10:05 Home Medications Medication Instructions Recorded Confirmed Last Taken Type RX: ALBUTEROL NEB's [Proventil 2.5 mg IH TID PRN 03/30/18 06/26/18 03/30/18 History 0.083% NEBS] RX: ALPRAZolam [Xanax TAB] 0.5 mg PO TID 03/30/18 06/26/18 Unknown History RX: Albuterol Sulfate [Ventolin 2 puff IH Q4H PRN 03/30/18 06/26/18 Unknown History HFA] RX: Ambrisentan [Letairis] 10 mg PO QDAY 03/30/18 06/26/18 03/30/18 History RX: Fluticasone/Salmeterol [Advair 1 each IH BID 03/30/18 06/26/18 Unknown History 500-50 Diskus] RX: Furosemide [Lasix TAB] 40 mg PO QDAY 03/30/18 06/26/18 03/30/18 History RX: Omeprazole 20 mg PO QDAY 03/30/18 06/26/18 03/30/18 History RX: Potassium Chloride [Klor-Con 20 meq PO QDAY 03/30/18 06/26/18 03/30/18 Hist ory M20] RX: Tadalafil [Cialis] 20 mg PO BID 03/30/18 06/26/18 03/30/18 History Review of Systems Constitutional: no weight loss, no weight gain Ears, nose, mouth and throat: no ear pain, no nose pain, no sinus pressure, no sinus pain Cardiovascular: orthopnea, shortness of breath, dyspnea on exertion, decreased exercise tolerance, no chest pain, no palpitations, no rapid/irregular heart beat, no edema, no syncope, no lightheadedness, no high blood pressure Respiratory: cough, cough with sputum, shortness of breath, dyspnea on exertion, wheezing Gastrointestinal: no abdominal pain, no nausea, no vomiting, no diarrhea, no constipation, no change in bowel habits Genitourinary Female: no pelvic pain, no flank pain, no dysuria, no urinary frequency, no urgency Musculoskeletal: no neck stiffness, no neck pain, no shooting arm pain, no arm numbness/tingling, no low back pain, no shooting leg pain Integumentary: no rash, no pruritis, no redness, no sores, no wounds Neurological: no head injury, no paralysis, no weakness, no parathesias, no numbness, no tingling, no seizures, no syncope Endocrine: no cold intolerance, no heat intolerance Allergic/Immunologic: wheezing Physical Examination Vital Signs Pulse Resp Pulse Ox 66 20 87 06/26/18 11:30 06/26/18 11:30 06/26/18 11:30 General appearance: other (sob) HEENT: Positive: PERRL, Normocephaly, Mucus Membranes Moist Neck: Positive: neck supple, trachea midline Cardiac: Positive: Reg Rate and Rhythm, S1/S2 Lungs: Positive: Decreased Breath Sounds Neuro: Positive: Grossly Intact Abdomen: Positive: Soft. Negative: Tender Skin: Negative: Rash Extremities: Present: edema (trace BLE) Results 06/26/18 12:03 06/26/18 12:06 Cardiac Enzymes 06/26/18 Range/Units 12:06 AST 29 (5-40) units/L CK-MB (CK-2) 12.4 H (0.0-4.0) ng/mL Lipids 06/26/18 Range/Units 12:06 Triglycerides 90 (2-149) mg/dL Cholesterol 115 (50-199) mg/dL HDL Cholesterol 64 H (40-59) mg/dL Cholesterol/HDL Ratio 1.79 % CBC 06/26/18 Range/Units 12:03 WBC 5.8 (4.5-11.0) K/mm3 RBC 3.33 L (3.65-5.03) M/mm3 Hgb 9.9 L (10.1-14.3) gm/dl Hct 29.8 L (30.3-42.9) % Plt Count 210 (140-440) K/mm3 Lymph # 0.7 L (1.2-5.4) K/mm3 [place] # 0.7 (0.0-0.8) K/mm3 Eos # 0.1 (0.0-0.4) K/mm3 Baso # 0.1 (0.0-0.1) K/mm3 Comprehensive Metabolic Panel 06/26/18 Range/Units 12:06 Sodium 135 L (137-145) mmol/L Potassium 3.7 (3.6-5.0) mmol/L Chloride 98.4 (98-107) mmol/L Carbon Dioxide 17 L (22-30) mmol/L BUN 47 H (7-17) mg/dL Creatinine 3.5 H (0.7-1.2) mg/dL Glucose 84 (65-100) mg/dL Calcium 8.7 (8.4-10.2) mg/dL AST 29 (5-40) units/L ALT 13 (7-56) units/L Alkaline Phosphatase 104 (35-129) units/L Total Protein 6.0 L (6.3-8.2) g/dL Albumin 3.7 L (3.9-5) g/dL - Imaging and Cardiology Echo: report reviewed (09/2017 showed severe RV dilatation and moderate RV dysfunction severe pulmonary hypertension RVSP 100 mmHg normal LV function D shaped septum.) Cardiac cath: report reviewed (2011 normal coronaries) EKG: report reviewed, image reviewed EKG interpretations - Telemetry EKG Rhythm: Sinus Rhythm - EKG Sinus rhythms and dysrhythmias: sinus rhythm AV and intraventricular conduction: right bundle branch block Assessment and Plan Assessment: Acute on chronic respiratory failure Acute right sided heart failure Cor pulmonale COPD Severe pulmonary HTN - RVSP 108mmHg Acute on chronic renal insufficiency Rheumatoid arthritis Anemia Plan: Agree with present cardiac regimen. Await nephrology consultation. F/u echo. The patient has been seen in conjunction with Dr. Morgan who agrees with the assessment and plan of care.
--- NOTE | 2018-06-26 15:32 | History and Physical Report ---
History of Present Illness Chief complaint: I cant breathe History of present illness: 68 YO Female with COPD, Chronic Respiratory Failure on 3L Home Oxygen, CKD, CHF, Severe Pulmonary HTN, HTN, presents to ED for evaluation. Pt states that she has experienced progressively worsening shortness of breath over the past 3 weeks with acute worsening of symptoms over the past 1 day. Pt acknowledges increased frequency of productive cough, with increased sputum production. Pt states that symptoms have worsened in spite of nebulizer and oral vasodilator therapy. Pt found to have a pulse oximetry of 84% this morning and decided to seek medical care. Pt transported to [facility] ED via private vehicle. Pt seen and evaluated in ED and found to have Acute on Chronic Respiratory Failure secondary to COPD Exacerbations, as well as ARF, Acidosis. Pt admitted to IMCU and initiated on supplemental oxygen. Prior admission on 03/30/18 reviewed. All listed medication reconciled at time of exam. Cardiology consulted in ED, Nephrology consulted in ED, Pulmonary team consulted in ED. Pt denies fever, chills, CP, Palpitations, NVD, Trauma, BRBPR, Skin Rash, Unilateral leg swelling, calf pain, Individual/Family history of DVT/PE/Blood Clotting disorders, Prolonged travel/Immobility, unintentional weight loss, night sweats. PMD: Amos Lagunas, local company truck driver Dr. Ta, maintenance journeyman: Dr. Amezcua, french drawer: Dr. Aceves Past History Past Medical History: COPD, hypertension, other (Pulmonary Hypertension) Past Surgical History: hysterectomy Social history: . denies: smoking, alcohol abuse, prescription drug abuse Family history: hypertension Medications and Allergies Allergies Allergy/AdvReac Type Severity Reaction Status Date / Time No Known Allergies Allergy Unverified 02/01/13 10:05 Home Medications Medication Instructions Recorded Confirmed Last Taken Type ALBUTEROL NEB's [Proventil 0.083% 2.5 mg IH TID PRN 03/30/18 06/26/18 03/30/18 History NEBS] ALPRAZolam [Xanax TAB] 0.5 mg PO TID 03/30/18 06/26/18 Unknown History Albuterol Sulfate [Ventolin HFA] 2 puff IH Q4H PRN 03/30/18 06/26/18 Unknown History Ambrisentan [Letairis] 10 mg PO QDAY 01/01/0606/26/18 03/30/18 History Fluticasone/Salmeterol [Advair 1 each IH BID 03/30/18 06/26/18 Unknown History 500-50 Diskus] Furosemide [Lasix TAB] 40 mg PO QDAY 03/30/18 06/26/18 03/30/18 History Omeprazole 20 mg PO QDAY 03/30/18 06/26/18 03/30/18 History Potassium Chloride [Klor-Con M20] 20 meq PO QDAY 03/30/18 06/26/18 03/30/18 History Tadalafil [Cialis] 20 mg PO BID 03/30/18 06/26/18 03/30/18 History Review of Systems Constitutional: no weight loss, no weight gain, no fever, no chills Ears, nose, mouth and throat: no ear pain, no ear discharge, no tinnitis, no decreased hearing, no nose pain, no nasal discharge Breasts: no change in shape Cardiovascular: no chest pain, no orthopnea, no palpitations, no rapid/irregular heart beat Respiratory: cough, cough with sputum, excessive sputum, shortness of breath, wheezing Gastrointestinal: no abdominal pain, no nausea, no vomiting, no diarrhea, no constipation Genitourinary Female: no pelvic pain, no flank pain, no menorrhagia, no dysuria, no urinary frequency Rectal: no pain, no incontinence, no bleeding Musculoskeletal: no neck stiffness, no neck pain, no shooting arm pain, no arm numbness/tingling, no low back pain Integumentary: no rash, no pruritis, no redness, no sores, no wounds Neurological: no transient paralysis, no paralysis, no weakness, no parathesias, no numbness, no tingling Psychiatric: no anxiety, no memory loss, no change in sleep habits, no sleep disturbances, no insomnia, no hypersomnia Endocrine: no cold intolerance, no heat intolerance, no polyphagia, no excessive thirst, no polydipsia Hematologic/Lymphatic: no easy bruising, no easy bleeding, no lymphadenopathy, no lymphedema Allergic/Immunologic: no urticaria, no allergic rhinitis, no persistent infections, no anaphylaxis Exam - Constitutional Vitals: Temp Pulse Resp BP Pulse Ox 98.1 F 79 25 H 109/61 86 06/26/18 12:23 06/26/18 12:23 06/26/18 12:23 06/26/18 12:23 06/26/18 12:23 General appearance: Present: severe distress - EENT Eyes: Present: PERRL ENT: hearing intact, clear oral mucosa - Neck Neck: Present: supple, normal ROM - Respiratory Respiratory effort: labored Respiratory: bilateral: diminished, rhonchi - Cardiovascular Heart Sounds: Present: S1 & S2. Absent: rub, click - Extremities Extremities: pulses symmetrical, No edema Peripheral Pulses: within normal limits - Abdominal General gastrointestinal: Present: soft, non-tender, non-distended, normal bowel sounds Female genitourinary: Present: normal - Integumentary Integumentary: Present: clear, warm, dry - Musculoskeletal Musculoskeletal: generalized weakness - Psychiatric Psychiatric: appropriate mood/affect, intact judgment & insight, memory intact - Neurologic Neurologic: CNII-XII intact, moves all extremities, no gait normal Results - Labs CBC & Chem 7: 06/26/18 12:03 06/26/18 12:06 Labs: Abnormal lab results 06/26/18 06/26/18 06/26/18 Range/Units 12:03 12:06 13:42 RBC 3.33 L (3.65-5.03) M/mm3 Hgb 9.9 L (10.1-14.3) gm/dl Hct 29.8 L (30.3-42.9) % RDW 16.5 H (13.2-15.2) % Lymph % (Auto) 12.2 L (13.4-35.0) % [place] % (Auto) 12.2 H (0.0-7.3) % Lymph # 0.7 L (1.2-5.4) K/mm3 Seg Neutrophils % 73.0 H (40.0-70.0) % POC ABG pCO2 34.1 L (35-45) POC ABG pO2 51 L (80-105) Sodium 135 L (137-145) mmol/L Carbon Dioxide 17 L (22-30) mmol/L BUN 47 H (7-17) mg/dL Creatinine 3.5 H (0.7-1.2) mg/dL Total Bilirubin 1.40 H (0.1-1.2) mg/dL Total Creatine Kinase 426 H (30-135) units/L CK-MB (CK-2) 12.4 H (0.0-4.0) ng/mL Troponin T 0.062 H (0.00-0.029) ng/mL Total Protein 6.0 L (6.3-8.2) g/dL Albumin 3.7 L (3.9-5) g/dL HDL Cholesterol 64 H (40-59) mg/dL Assessment and Plan - Patient Problems (1) Acute respiratory failure Current Visit: Yes Status: Acute Qualifiers: Respiratory failure complication: hypoxia Qualified Code(s): J96.01 - Acute respiratory failure with hypoxia Plan to address problem: Supplemental oxygen, nebulizer therapy, NIPPV as clinically indicated, ABG, (2) ARF (acute renal failure) Current Visit: Yes Status: Ruled-out Qualifiers: Acute renal failure type: with acute tubular necrosis Qualified Code(s): N17.0 - Acute kidney failure with tubular necrosis Plan to address problem: Nephrology consulted in ED, monitor uop q shift, avoid nephrotoxic agents. (3) COPD with exacerbation Current Visit: Yes Status: Acute Plan to address problem: IV steroid therapy, nebulizer therapy, NIPPV as clinically indicated, (4) Pulmonary hypertension Current Visit: Yes Status: Acute Plan to address problem: Severe Pulmonary HTN: continue oral vasodilator therapy, (5) Acidosis Current Visit: Yes Status: Acute (6) DVT prophylaxis Current Visit: Yes Status: Acute Plan to address problem: SCD to BLE while in bed.
--- NOTE | 2018-06-26 15:33 | XRay Report ---
PROCEDURE: XR CHEST 1V AP TECHNIQUE: Chest radiograph, AP portable upright view. HISTORY: sob COMPARISONS: Chest x-ray June 08, 2018. FINDINGS: Moderate to marked stable cardiomegaly. Aortic calcifications. Mildly prominent bilateral pulmonary markings. Bibasilar linear scarring and/or discoid subsegmental atelectasis. Small bilateral pleural effusions. No pneumothorax. There are no suspicious osseous lesions. Scoliosis. IMPRESSION: * Stable cardiomegaly. * Punctate findings may represent mild pulmonary vascular congestion. * Small bilateral pleural effusion. * Focal subsegmental atelectasis or infiltrates at both lung bases. This document is electronically signed by Jefferson Ford MD., June 26 2018 03:31:06 PM ET
[2018-06-26] MEDS ORDERED: HYDROMET PO ONE (15:46)
[2018-06-26] MEDS ORDERED: PROVENTIL IH PRN (15:46)
[2018-06-26] MEDS ORDERED: SODIUM CHLORIDE FLUSH SYRINGE 10 ML IV PRN (15:49)
--- NOTE | 2018-06-26 16:16 | Consultation ---
History of Present Illness - Reason for Consult Consult date: 06/26/18 acute renal failure, chronic renal failure Requesting physician: RUCHI CHICAS - History of Present Illness 68-year-old woman with a history of CHF, COPD, pulmonary hypertension comes emergency room complaints are shortness breath, dyspnea on exertion, PND and orthopnea. Over the last 2 months she has had increasingly shortness of breath, cough productive of yellow phlegm 2 months. Status post antibiotics and steroid treatment Review of systems: Constitutional: no weight loss, chills, fever Ears, eyes, nose, mouth and throat: no nasal congestion, no nasal discharge, no sinus pressure, no vision change, no red eye. Neck: No neck pain or rigidity. Cardiovascular: no palpitations, chest pain Respiratory: no cough, shortness of breath Gastrointestinal: no hematochezia, abdominal pain Genitourinary : no frequency , no hematuria Musculoskeletal: no joint swelling or muscle ache Integumentary: no rash, no pruritis Neurological: no parathesias, no focal weakness Endocrine: no cold or heat intolerance, no polyuria or polydipsia Hematologic/Lymphatic: no easy bruising, no easy bleeding, no gland swelling Allergic/Immunologic: no urticaria, no angioedema. PAST MEDICAL HISTORY: CHF, COPD, pulmonary hypertension PAST SURGICAL HISTORY: Hysterectomy SOCIAL HISTORY: Denies alcohol, drugs, tobacco FAMILY HISTORY: Hypertension Past History Past Medical History: other (as per hpi) Medications and Allergies Allergies Allergy/AdvReac Type Severity Reaction Status Date / Time No Known Allergies Allergy Unverified 02/01/13 10:05 Home Medications Medication Instructions Recorded Confirmed Last Taken Type ALBUTEROL NEB's [Proventil 0.083% 2.5 mg IH TID PRN 03/30/18 06/26/18 03/30/18 History NEBS] ALPRAZolam [Xanax TAB] 0.5 mg PO TID 03/30/18 06/26/18 Unknown History Albuterol Sulfate [Ventolin HFA] 2 puff IH Q4H PRN 03/30/18 06/26/18 Unknown History Ambrisentan [Letairis] 10 mg PO QDAY 03/30/18 06/26/18 03/30/18 History Fluticasone/Salmeterol [Advair 1 each IH BID 03/30/18 06/26/18 Unknown History 500-50 Diskus] Furosemide [Lasix TAB] 40 mg PO QDAY 03/30/18 06/26/18 03/30/18 History Omeprazole 20 mg PO QDAY 03/30/18 06/26/18 03/30/18 History Potassium Chloride [Klor-Con M20] 20 meq PO QDAY 03/30/18 06/26/18 03/30/18 History Tadalafil [Cialis] 20 mg PO BID 03/30/18 06/26/18 03/30/18 History Active Meds: Active Medications Albuterol (Proventil) 2.5 mg IH TID PRN PRN Reason: Wheezing Alprazolam (Xanax) 0.5 mg PO TID KAYLENE Furosemide (Lasix) 40 mg PO QDAY KAYLENE Miscellaneous Medication (Ambrisentan [Letairis]) 10 mg PO QDAY KAYLENE Miscellaneous Medication (Fluticasone/Salmeterol [Advair 500-50 Diskus]) 1 each IH BID KAYLENE Miscellaneous Medication (Tadalafil [Cialis]) 20 mg PO BID KAYLENE Pantoprazole Sodium (Protonix) 20 mg PO QDAY KAYLENE Potassium Chloride (K-Dur) 20 meq PO QDAY KAYLENE Sodium Chloride (Sodium Chloride Flush Syringe 10 Ml) 10 ml IV BID KAYLENE Sodium Chloride (Sodium Chloride Flush Syringe 10 Ml) 10 ml IV PRN PRN PRN Reason: LINE FLUSH Exam - Vital Signs Vital signs: Vital Signs Pulse Resp Pulse Ox 66 20 87 06/26/18 11:30 06/26/18 11:30 06/26/18 11:30 - Physical Exam Narrative exam: General appearance: other (sob) HEENT: Positive: PERRL, Normocephaly, Mucus Membranes Moist Neck: Positive: neck supple, trachea midline Cardiac: Positive: Reg Rate and Rhythm, S1/S2 Lungs: Positive: Decreased Breath Sounds Neuro: Positive: Grossly Intact Abdomen: Positive: Soft. Negative: Tender Skin: Negative: Rash Extremities: Present: edema (trace BLE) Results - Lab Results 06/26/18 12:03 06/26/18 12:06 Most recent lab results Calcium 8.7 mg/dL (8.4-10.2) 06/26/18 12:06 Assessment and Plan Impression: * JAYLEEN on ckd stage 3 * Acute respiratory failure with hypoxia * Acute right sided heart failure * Severe Pulmonary HTN * Cor pulmonale-Severe * Acute on chronic renal sufficiency * COPD Exacerbation Plan: * Continue supportive care * cr is worse today, likely hypoperfusion * plans for transfer noted * Hold beta tracey, RUSS inhibitor, blood pressure will not tolerate * Monitor I's and O's, daily weights
[2018-06-26] MEDS ORDERED: PULMICORT IH SCH (20:00)
[2018-06-26] MEDS ORDERED: XANAX PO SCH (20:00)
[2018-06-26] MEDS ORDERED: BROVANA NEBU IH SCH (20:00)
[2018-06-26 20:45] VITALS: BP 115/63
[2018-06-26] MEDS ORDERED: SODIUM CHLORIDE FLUSH SYRINGE 10 ML IV SCH (22:00)
[2018-06-26] MEDS ORDERED: NON-FORMULARY (Fluticasone/Salmeterol [Advair 500-50 Diskus] 1 EACH) IH SCH (22:00)
[2018-06-26] MEDS ORDERED: TADALAFIL 20 MG PO SCH (22:00)
[2018-06-27] MEDS ORDERED: NON-FORMULARY (Ambrisentan [Letairis] 10 MG) PO SCH (10:00)
[2018-06-27] MEDS ORDERED: LASIX PO SCH (10:00)
[2018-06-27] MEDS ORDERED: PROTONIX PO SCH (10:00)
[2018-06-27] MEDS ORDERED: NON-FORMULARY (Omeprazole [Omeprazole] 20 MG) PO SCH (10:00)
[2018-06-27] MEDS ORDERED: K-DUR PO SCH (10:00)
== END 2018-06-26 22:17 | disposition admitted as inpatient to this hospital (09) ==
LOC: ED 11:16
DX: J44.1 Chronic obstructive pulmonary disease with (acute) exacerbation (principal); I13.0 Hypertensive heart and chronic kidney disease with heart failure and stage 1 through stage 4 chronic kidney disease, or unspecified chronic kidney disease; N18.9 Chronic kidney disease, unspecified; I50.9 Heart failure, unspecified; E87.2 Acidosis; R09.02 Hypoxemia; Z90.710 Acquired absence of both cervix and uterus; Z87.891 Personal history of nicotine dependence
CPT/HCPCS: 36415; 71045; 80053; 80061; 82550; 82553; 82803; 83880; 84484; 85025; 93005; 93010; 94640; 96374; 96375; 99285; J2405; J2930

== ENCOUNTER 2018-08-04 23:54 | Emergency (ER) | payer MEDICARE ==
[~2018-08-04 23:54] MED LIST: ADRENALIN ONE
--- NOTE | 2018-08-05 00:29 | Emergency Department Report ---
ED CPR HPI - General Chief Complaint: Cardiac Arrest/CPR Stated Complaint: CARDIC ARREST Time Seen by Provider: 08/04/18 23:55 Source: EMS Mode of arrival: Stretcher Limitations: Altered Mental Status, Physical Limitation, Other - History of Present Illness Initial Comments: Patient is a 68-year-old female is brought in by EMS for full cardiac arrest. Report received from EMS. Patient was found down by family and down time was approximately 20 minutes. CPR was started by family. EMS states that the patient was recently taken off hospice and still had a DO NOT RESUSCITATE order but because the family started CPR EMS continued CPR always in the hospital. The patient was given multiple medications and intubated with a oral airway and bag with a BVM. Chest compressions were performed by EMS. MD Complaint: found unresponsive -: unknown Place: home Bystander CPR Performed: Yes AED Applied by Bystander/Dispatcher Ship Pilot: No Shock Advised: No Initial Findings in the Field: unresponsive, no respirations, no pulse ROSC in the Field: No Associated Injuries: No Treatments Prior to Arrival: BMV, other airway device, chest compressions, epinephrine mgs # - Related Data Home Medications Medication Instructions Recorded Confirmed Last Taken ALBUTEROL NEB's [Proventil 0.083% 2.5 mg IH TID PRN 03/30/18 06/26/18 03/30/18 NEBS] ALPRAZolam [Xanax TAB] 0.5 mg PO TID 03/30/18 06/26/18 Unknown Albuterol Sulfate [Ventolin HFA] 2 puff IH Q4H PRN 03/30/18 06/26/18 Unknown Ambrisentan [Letairis] 10 mg PO QDAY 03/30/18 06/26/18 03/30/18 Fluticasone/Salmeterol [Advair 1 each IH BID 03/30/18 06/26/18 Unknown 500-50 Diskus] Furosemide [Lasix TAB] 40 mg PO QDAY 03/30/18 06/26/18 03/30/18 Omeprazole 20 mg PO QDAY 03/30/18 06/26/18 03/30/18 Potassium Chloride [Klor-Con M20] 20 meq PO QDAY 03/30/18 06/26/18 03/30/18 Tadalafil [Cialis] 20 mg PO BID 0106/26/18 03/30/18 Allergies Allergy/AdvReac Type Severity Reaction Status Date / Time No Known Allergies Allergy Unverified 02/01/13 10:05 ED Review of Systems ROS: Stated complaint: CARDIC ARREST Other details as noted in HPI Comment: Unobtainable due to pts medical conditions ED Past Medical Hx - Past Medical History Previous Medical History?: Yes Hx Hypertension: Yes Hx Congestive Heart Failure: Yes Hx Renal Disease: Yes (chronic kidney disease) Hx COPD: Yes (home oxygen) Additional medical history: Pulmonary Htn - Surgical History Past Surgical History?: Yes Additional Surgical History: Hysterectomy - Social History Smoking Status: Former Smoker Substance Use Type: Alcohol - Medications Home Medications: Home Medications Medication Instructions Recorded Confirmed Last Taken Type ALBUTEROL NEB's [Proventil 0.083% 2.5 mg IH TID PRN 03/30/18 06/26/18 03/30/18 History NEBS] ALPRAZolam [Xanax TAB] 0.5 mg PO TID 03/30/18 06/26/18 Unknown History Albuterol Sulfate [Ventolin HFA] 2 puff IH Q4H PRN 03/30/18 06/26/18 Unknown History Ambrisentan [Letairis] 10 mg PO QDAY 03/30/18 06/26/18 03/30/18 History Fluticasone/Salmeterol [Advair 1 each IH BID 03/30/18 06/26/18 Unknown History 500-50 Diskus] Furosemide [Lasix TAB] 40 mg PO QDAY 03/30/18 06/26/18 03/30/18 History Omeprazole 20 mg PO QDAY 03/30/18 06/26/18 03/30/18 History Potassium Chloride [Klor-Con M20] 20 meq PO QDAY 03/30/18 06/26/18 03/30/18 History Tadalafil [Cialis] 20 mg PO BID 03/30/18 06/26/18 03/30/18 History ED Physical Exam - General Limitations: Altered Mental Status, Physical Limitation, Other General appearance: other - Head Head exam: Present: atraumatic, normocephalic - ENT ENT exam: Present: mucous membranes dry - Neck Neck exam: Present: normal inspection - Respiratory Respiratory exam: Present: other (no respiratory motion noted) - Cardiovascular Cardiovascular Exam: Present: other (no pulse noted. No cardiac motion noted) - GI/Abdominal GI/Abdominal exam: Present: soft - Rectal Rectal exam: Present: deferred - Extremities Exam Extremities exam: Present: normal inspection - Skin Skin exam: Present: intact, normal color. Absent: rash ED Course - Reevaluation(s) Reevaluation #1: Initial evaluation done. Patient brought in by EMS and CPR being performed. Patient has an oral airway in. Oral airway will be removed and patient intubated. Code ran In accordance with ACLS protocol. 08/04/18 23:45 No signs of life. No cardiac motion. Asystole on the monitor. Resuscitation efforts terminated. 08/04/18 23:50 Family meeting done. Family support will be given as needed. 08/05/18 00:30 - Intubation Time Out Performed: Yes Sedative: none Laryngoscope: Mejia Size: 4 ET Tube Size: 7.5 Tube Secured Depth (cm): 22 Tube Secured Location: teeth Tube Placement Confirmation: visualized tube passing t, equal breath sounds bilat, no breath sounds over epi, confirmation by capnometr Patient Tolerated Procedure: well Intubation Complications: none ED Medical Decision Making - Medical Decision Making Condition is a 68-year-old female that presents emergency room in full cardiac arrest. Patient CPR was initiated by family and continue by EMS to the hospital. CPR and code continue upon arrival. Patient's oral airway was removed and patient was intubated. See procedure note. Patient never showed signs of life. Patient was always asystole on the monitor and pulse noted. Resuscitation efforts discontinued due to no signs of life. No cardiac motion. No pulse. See code note. Code ran in Accordance with ACLS guidelines - Differential Diagnosis cardiac arrest. Critical Care Time: Yes Critical care attestation.: If time is entered above; I have spent that time in minutes in the direct care of this critically ill patient, excluding procedure time. Critical Care Time: 35 minutes ED Disposition Clinical Impression: Cardiac arrest Disposition: DC-20 Is pt being admited?: No Does the pt Need Aspirin: No Condition: Undetermined Time of Disposition: 00:55
== END 2018-08-05 02:30 ==
LOC: ED 23:54
DX: I46.9 Cardiac arrest, cause unspecified (principal); I13.0 Hypertensive heart and chronic kidney disease with heart failure and stage 1 through stage 4 chronic kidney disease, or unspecified chronic kidney disease; N18.9 Chronic kidney disease, unspecified; I50.9 Heart failure, unspecified; J44.9 Chronic obstructive pulmonary disease, unspecified; Z90.710 Acquired absence of both cervix and uterus; Z87.891 Personal history of nicotine dependence
CPT/HCPCS: 31500; 99285; J0171